=== PATIENT | female | born 1990 | race Asian ===

== ENCOUNTER 2020-12-04 19:38 | Inpatient (IN) | payer OTHER ==
[~2020-12-04] VITALS: Ht 154.9 cm; Wt 73.6 kg
[2020-12-04] MEDS ORDERED: CEFD1CAP8 PO (19:50)
[2020-12-04] MEDS ORDERED: OXYB5TAB10 PO (19:50)
[2020-12-04] MEDS ORDERED: birth control tab PO (19:50)
[2020-12-04] MEDS ORDERED: ceftin (19:50)
[2020-12-04] MEDS ORDERED: IBUP1TAB5 PO (19:50)
[2020-12-04] MEDS ORDERED: NS 1,000 ML IV ONE (20:55)
[2020-12-04 21:30] LABS: BASO % 0.4 % (0.0-1.0); EOS % 0.4 % (0.0-3.0); HEMATOCRIT 36.7 % (36.0-47.0); HEMOGLOBIN 12.2 g/dl (12.0-15.5); LYMPH # 1.9 10^3/uL (1.5-5.0); LYMPH % 20.2 % (24.0-44.0); MEAN CORPUSCULAR HEMOGLOBIN 28.4 pg (27.0-33.0); MEAN CORPUSCULAR HGB CONC 33.2 g/dl (32.0-36.5); MEAN CORPUSCULAR VOLUME 85.5 fl (80.0-96.0); MONO # 1.5 10^3/uL (0.0-0.8); NEUTROPHILS # 5.7 10^3/uL (1.5-8.5); NEUTROPHILS % 62.2 % (36.0-66.0); PLATELET COUNT, AUTOMATED 253 10^3/uL (150-450); RED BLOOD COUNT 4.29 10^6/uL (4.00-5.40); WHITE BLOOD COUNT 9.2 10^3/uL (4.0-10.0)
[2020-12-04 21:43] LABS: ALBUMIN 2.9 GM/DL (3.2-5.2); ALT/SGPT 100 U/L (12-78); BILIRUBIN,DIRECT 0.3 MG/DL (0.0-0.2); BILIRUBIN,TOTAL 0.4 MG/DL (0.2-1.0); BLOOD UREA NITROGEN 7 MG/DL (7-18); CALCIUM LEVEL 8.3 MG/DL (8.5-10.1); CARBON DIOXIDE LEVEL 23 MEQ/L (21-32); CHLORIDE LEVEL 108 MEQ/L (98-107); GLOMERULAR FILTRATION RATE > 60.0 (>60); GLUCOSE, FASTING 103 MG/DL (70-100); LIPASE 161 U/L (73-393); POTASSIUM SERUM 3.8 MEQ/L (3.5-5.1); SODIUM LEVEL 139 MEQ/L (136-145); TOTAL PROTEIN 7.2 GM/DL (6.4-8.2)
[2020-12-04 22:05] LABS: MONO % 16.5 % (2.0-8.0)
[2020-12-04] MEDS ORDERED: KETOROLAC 30 MG/ML 1ML VIAL IV ONE (22:55)
[2020-12-04] MEDS ORDERED: ISOVUE-370 76% 100ML VIAL As Ordered ONE (23:01)
[2020-12-05] VITALS (7 sets, daily range): BP systolic 112–133; BP diastolic 69–87
--- NOTE | 2020-12-05 00:53 | REPVR ---
PROCEDURE INFORMATION: Exam: CT Abdomen And Pelvis With Contrast Exam date and time: 12/04/2020 11:28 PM Age: 30 years old Clinical indication: Abdominal pain; Localized; Left upper quadrant (luq); Additional info: Upper abd pain TECHNIQUE: Imaging protocol: Computed tomography of the abdomen and pelvis with contrast. Radiation optimization: All CT scans at this facility use at least one of these dose optimization techniques: automated exposure control; mA and/or kV adjustment per patient size (includes targeted exams where dose is matched to clinical indication); or iterative reconstruction. Contrast material: ISOVUE 370; Contrast volume: 100 ml; Contrast route: INTRAVENOUS (IV); COMPARISON: No relevant prior studies available. FINDINGS: Liver: Unremarkable. No mass. Gallbladder and bile ducts: Normal. No calcified stones. No ductal dilation. Pancreas: Normal. No ductal dilation. Spleen: Normal. No splenomegaly. Adrenal glands: Normal. No mass. Kidneys and ureters: Layering calyceal stones in the upper pole of the left kidney. Patchy cortical hypoenhancement in the left kidney, most severely involving the upper pole. Mild left renal cortical atrophy. Left ureter is mildly distended with mild urothelial enhancement the. No obstructing ureteral calculi. Right kidney is unremarkable. Stomach and bowel: Unremarkable. No obstruction. No inflammatory changes or mucosal thickening. Appendix: No evidence of appendicitis. Intraperitoneal space: No free air. No significant fluid collection. Vasculature: Unremarkable. No abdominal aortic aneurysm. Lymph nodes: Unremarkable. No enlarged lymph nodes. Urinary bladder: Unremarkable as visualized. Reproductive: Unremarkable as visualized. Bones/joints: Unremarkable. No acute fracture. Soft tissues: Unremarkable. IMPRESSION: 1. Left pyelonephritis. 2. Nonobstructing calyceal stones in the left kidney. Electronically signed by: Andrew Reyes On 12/05/2020 00:52:40 AM
[2020-12-05] MEDS ORDERED: NS 1,000 ML IV SCH (01:35)
--- NOTE | 2020-12-05 01:35 | REPVR ---
PROCEDURE INFORMATION: Exam: US Abdomen, Limited; Right Upper Quadrant Exam date and time: 12/05/2020 1:27 AM Age: 30 years old Clinical indication: Abnormal findings; Abnormal lab test; Abnormal function test of other organs/systems; Additional info: Elevated lfts/fever TECHNIQUE: Imaging protocol: US abdomen. Real time ultrasound with image documentation. Limited exam focused on the right upper quadrant. COMPARISON: CT ABD/PEL W/IV CONTRAST ONLY 12/04/2020 11:27 PM FINDINGS: Liver: Normal. No masses. Gallbladder: Normal. No gallstones. There is no gallbladder wall thickening. Common bile duct: Normal. No stones. No dilation. Pancreas: Visualized pancreas is unremarkable. Right kidney: Normal. No mass. No hydronephrosis. IMPRESSION: No acute findings. Electronically signed by: Andrew Reyes On 12/05/2020 01:34:37 AM
[2020-12-05] MEDS ORDERED: D5W/0.45% SODIUM CHLORIDE 1,000 ML IV SCH (02:05)
[2020-12-05] MEDS ORDERED: BIRTH CONTOL (02:09)
[2020-12-05] MEDS ORDERED: NALOXONE INJ 0.4MG/1ML VIAL (J2310 PER 1MG) IV PRN (02:10)
[2020-12-05] MEDS: NS 1,000 ML IV SCH ×2 (03:05→04:51)
[2020-12-05] MEDS: cefTRIAXone SOD 1 GM in D5W MINI-BAG PLUS 50 ML IV SCH (03:05)
[2020-12-05] MEDS: MORPHINE 4 MG/ML 1ML VIAL/SYRINGE (J2270) IV PRN (03:12)
[2020-12-05 03:16] LABS: MONO SCRN NEGATIVE (NEGATIVE)
[2020-12-05 03:52] LABS: RSV AMPLIFICATION NEGATIVE (NEGATIVE)
[2020-12-05] MEDS: KETOROLAC 30 MG/ML 1ML VIAL IV SCH ×4 (05:00→23:00)
--- NOTE | 2020-12-05 06:34 | HPEPDOC ---
[facility] Medical History & Physical Date of Admission Dec 05, 2020 Date of Service: Dec 05, 2020 History and Physical CHIEF COMPLAINT: "It hurts to urinate." Fever 102 HISTORY OF PRESENT ILLNESS: 30-year-old female with history of urinary tract infection pyelonephritis and kidney stones previously treated in [place] and [place] childhood asthma was in her usual state of health until last Sunday when she developed dysuria chills and on and off subjective fevers pain worsened on the right flank on Sunday prompting her to come to the emergency room she denies any hematuria but admits to urinary frequency and urgency. She describes the pain as stabbing and achy persistent since Sunday prompting her to come to the emergency room, no radiation of the pain but better when she sits still and places a pillow on her stomach . the pain is worse when she moves around and ambulates. Despite taking ibuprofen to 200 mg tablets every 4-5 hours and Tylenol 500 mg every 6 hours at home, patient had intractable pain prompting her to come to the ER she had one episode of nausea without vomiting and complains of constipation. In the emergency room she was found to be septic with temperature 102 tachycardic with heart rate of 118 bpm but hemodynamically stable with systolic pressure ranging from 130 to 145 mmHg . She had normal lactic acid and white count CT abdomen and pelvis showed left pyelonephritis with left kidney nonobstructive calyceal stones. Urologist Dr. Bearden was consulted and recommended n.p.o. status after midnight for cystoscopy and left stent placement in the morning. 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 REVIEW OF SYSTEMS: 10 point review of systems negative aside from positive findings in HPI HOME MEDICATIONS: Please see below. PHYSICAL EXAMINATION: VITAL SIGNS: See below GENERAL APPEARANCE: Awake alert oriented to person place and time anicteric no distress no pallor cyanosis or icterus speaks in full sentences HEENT: Pupils equally round reactive to light accommodation extra ocular muscles are intact normocephalic atraumatic no JVD thyromegaly dry mucous membranes no cervical lymphadenopathy CARDIOVASCULAR: S1-S2 regular rate rhythm no murmurs rubs or gallops LUNGS: No kyphosis no scoliosis air entry is equal bilaterally inspiratory expiratory ratio 1:2 no adventitious breath sounds clear to auscultation bilaterally ABDOMEN: Positive bowel sounds soft left-sided CVA tenderness no rebound or guarding normal active bowel sounds no hepatosplenomegaly EXTREMITIES: No cyanosis clubbing or pitting edema LABORATORY DATA: See below. IMAGING: See below MICROBIOLOGY: Please see below. ASSESSMENT: 30-year-old female with history of urinary tract infection pyelonephritis and kidney stones previously treated in [facility] and [place] childhood asthma was in her usual state of health until last Sunday when she developed dysuria chills and on and off subjective fevers pain worsened on the right flank on Sunday prompting her to come to the emergency room she denies any hematuria but admits to urinary frequency and urgency. She describes the pain as stabbing and achy persistent since Sunday prompting her to come to the emergency room, no radiation of the pain but better when she sits still and places a pillow on her stomach . the pain is worse when she moves around and ambulates. Despite taking ibuprofen to 200 mg tablets every 4-5 hours and Tylenol 500 mg every 6 hours at home, patient had intractable pain prompting her to come to the ER she had one episode of nausea without vomiting and complains of constipation. In the emergency room she was found to be septic with temperature 102 tachycardic with heart rate of 118 bpm but hemodynamically stable with systolic pressure ranging from 130 to 145 mmHg . She had normal lactic acid and white count CT abdomen and pelvis showed left pyelonephritis with left kidney nonobstructive calyceal stones. Urologist Dr. Bearden was consulted and recommended n.p.o. status after midnight for cystoscopy and left stent placement in the morning. Sepsis secondary to acute pyelonephritis on the left kidney -IV fluids -IV ceftriaxone -Await urine and blood culture results and de-escalate antibiotics once sensitivity results are available acute pyelonephritis -IV ceftriaxone, IV fluids, de-escalate antibiotics once urine culture sensitivity results are available Left kidney nonobstructive calyceal stones -IV fluids while on IV Toradol - monitor renal function with a repeat creatinine -N.p.o. for cystoscopy and stent placement -Urologist Dr. Bearden consulted for cystoscopy and stent placement Diet n.p.o. D5 half-normal saline after normal saline IV boluses to prevent hypoglycemia. hypoglycemic protocol DVT prophylaxis compression stockings. cannot use heparin or Lovenox due to planned procedure for cystoscopy and stent placement Vital Signs Vital Signs Date Time Temp Pulse Resp B/P (MAP) Pulse Ox O2 Delivery O2 Flow Rate FiO2 12/05/20 04:00 17 12/05/20 03:22 99.0 82 138/82 (100) 99 Room Air Laboratory Data Labs 24H Laboratory Tests 2 12/04/20 21:11: Immature Granulocyte % (Auto) 0.3, Neutrophils (%) (Auto) 62.2, Lymphocytes (%) (Auto) 20.2L, Monocytes (%) (Auto) 16.5H, Eosinophils (%) (Auto) 0.4, Basophils (%) (Auto) 0.4, Neutrophils # (Auto) 5.7, Lymphocytes # (Auto) 1.9, Monocytes # (Auto) 1.5H, Eosinophils # (Auto) 0.0, Basophils # (Auto) 0.0, Nucleated Red Blood Cells % (auto) 0.0, Urine Color YELLOW, Urine Appearance CLEAR, Urine pH 7.0, Urine Specific [place] 1.011, Urine Protein 1+H, Urine Glucose (UA) NEGATI VE, Urine Ketones TRACEH, Urine Blood 1+H, Urine Nitrite NEGATIVE, Urine Bilirubin NEGATIVE, Urine Urobilinogen 4.0H, Urine Leukocyte Esterase NEGATIVE, Urine WBC (Auto) 8H, Urine RBC (Auto) 9H, Urine Hyaline Casts (Auto) 0, Urine Bacteria (Auto) NEGATIVE, Urine Squamous Epithelial Cells 0, Urine Sperm (Auto) , Anion Gap 8, Glomerular Filtration Rate > 60.0, Calcium Level 8.3L, Total Bilirubin 0.4, Direct Bilirubin 0.3H, Aspartate Amino Transf (AST/SGOT) 103H, Alanine Aminotransferase (ALT/SGPT) 100H, Alkaline Phosphatase 151H, Total Protein 7.2, Albumin 2.9L, Albumin/Globulin Ratio 0.7L, Lipase 161, Monoscreen NEGATIVE 12/04/20 21:23: POC Beta HCG, Quantitative < 5.0 12/04/20 21:31: Lactic Acid Level 1.1 12/05/20 03:08: Coronavirus (COVID-19)(PCR) NEGATIVE, Influenza Type A (RT-PCR) NEGATIVE, Influenza Type B (RT-PCR) NEGATIVE, Respiratory Syncytial Virus (PCR) NEGATIVE CBC/BMP Laboratory Tests 12/04/20 21:11 Microbiology Microbiology 12/04/20 Blood Culture, Received Pending 12/04/20 Blood Culture, Received Pending Home Medications Scheduled Cefdinir (Cefdinir) 300 Mg Capsule, 300 MG PO BID started 12/03/20 x 7 days Ibuprofen (Ibuprofen) 400 Mg Tablet, 400 MG PO TID for pain Scheduled PRN Oxybutynin Chloride (Oxybutynin Chloride) 5 Mg Tablet, 5 MG PO QHS PRN for prn Miscellaneous Medications [ contol tablets] unknown name Allergies Coded Allergies: No Known Allergies (Unverified , 12/04/20) A-FIB/CHADSVASC A-FIB History Current/History of A-Fib/PAF?: No Current PO Anticoag Therapy: No Age/Risk Factor Scoring CHADSVASC: CHADSVASC Response (Comments) Value Age Risk Factor Age < 65 years old 0 Gender Risk Factor Female 1 Hx of CHF No 0 Hx of HTN No 0 Hx of Stroke/TIA/or VTE No 0 Hx of Diabetes No 0 Hx of Vascular Disease No 0 Total 1 Treatment Treatment ordered: NONE MURALI LI MD Dec 05, 2020 06:05
[2020-12-05] MEDS ORDERED: GLUCAGON INJ 1MG VIAL SC PRN (06:35)
[2020-12-05] MEDS ORDERED: GLUCOSE 4GM CHEW TABLET PO PRN (06:35)
[2020-12-05] MEDS ORDERED: DEXTROSE 50% 50 ML SYRINGE IV PRN (06:35)
[2020-12-05 07:00] LABS: FERRITIN 232 NG/ML (8-252); IRON (FE) 26 UG/DL (50-170); PERCENT SATURATION 7.3 % (13.2-45.0); TOTAL IRON BINDING CAPACITY 355 UG/DL (250-450)
--- NOTE | 2020-12-05 07:18 | SMCUROLCON ---
Urology Consultation General Date of Consultation 12/05/20 Reason For Consultation This patient is seen for Left Pyelonephritis and Nephrolithiasis. 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 She has h/o childhood asthma was in her usual state of health until last Sunday when she developed dysuria chills and on and off subjective fevers pain worsened on the right flank on Sunday prompting her to come to the emergency room at an outside hospital where they took urine, prsecribed antibiotics and sent here home on antibiotics. No imaging was done. she denies any hematuria but admits to urinary frequency and urgency. She describes the pain as stabbing and achy persistent since Sunday prompting her to come to the emergency room, no radiation of the pain but better when she sits still and places a pillow on her stomach . the pain is worse when she moves around and ambulates. Despite taking ibuprofen to 200 mg tablets every 4-5 hours and Tylenol 500 mg every 6 hours at home, patient had intractable pain prompting her to come to the ER she had one episode of nausea without vomiting and complains of constipation. In the emergency room she was found to be septic with temperature 102 tachycardic with heart rate of 118 bpm but hemodynamically stable with systolic pressure ranging from 130 to 145 mmHg . She had normal lactic acid and white count CT abdomen and pelvis showed left pyelonephritis with left kidney nonobstructive calyceal stones. Abdominal sono noted a normal gall bladder. She was now admitted for new w/u and cystoscopy and stent insertion. 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 REVIEW OF SYSTEMS: 10 point review of systems negative aside from positive findings in HPI HOME MEDICATIONS: Please see below. PHYSICAL EXAMINATION: VITAL SIGNS: See below GENERAL APPEARANCE: Awake alert oriented to person place and time anicteric no distress no pallor cyanosis or icterus speaks in full sentences ABDOMEN: Positive bowel sounds soft + left-sided CVA tenderness no rebound or guarding normal active bowel sounds no hepatosplenomegaly EXTREMITIES: No cyanosis clubbing or pitting edema History of Present Illness The patient is a -year-old with a past medical history for . Medications Current Medications Current Medications Medications (Trade) Dose Ordered Sig/Mesha Route PRN Reason Start Time Stop Time Status Last Admin Dose Admin Acetaminophen (Tylenol Tab) 650 mg Q4HP PRN PO MILD PAIN or TEMP > 101 12/05/20 02:05 Ceftriaxone Sodium 1 gm/ Dextrose 50 ml @ 100 mls/hr Q24H IV 12/05/20 03:00 12/05/20 03:05 Dextrose (Dextrose 50%) 25 ml ASDIRECTED PRN IV SEE LABEL COMMENTS 12/05/20 06:35 Dextrose/Sodium Chloride 1,000 ml @ 100 mls/hr Q10H IV 12/05/20 02:05 12/05/20 05:57 Glucagon (Glucagon) 1 mg ASDIRECTED PRN SC SEE LABEL COMMENTS 12/05/20 06:35 Glucose (Glucose) 16 GM ASDIRECTED PRN PO SEE LABEL COMMENTS 12/05/20 06:35 Home Med (Med Rec Complete!) ASDIRECTED XX 12/05/20 02:10 12/05/20 02:34 DC Ketorolac Tromethamine (ToRADol) 30 mg Q6H IV 12/05/20 05:00 12/10/20 04:59 Morphine Sulfate (Morphine Sulfate Inj) 4 mg Q2HP PRN IV SEVERE PAIN (PS 8-10) 12/05/20 02:05 12/05/20 03:12 Naloxone HCl (Narcan) 0.1 mg Q5MP PRN IV RESP. RATE < 10 12/05/20 02:10 Sodium Chloride 1,000 ml @ 100 mls/hr Q10H IV 12/05/20 01:35 12/05/20 02:09 DC Sodium Chloride 1,000 ml @ 999 mls/hr Q1H IV 12/05/20 02:05 12/05/20 04:04 DC 12/05/20 04:51 Allergies Allergies: Coded Allergies: No Known Allergies (Unverified , 12/04/20) Vital Signs/I&O Vital Signs Date Time Temp Pulse Resp B/P (MAP) Pulse Ox O2 Delivery O2 Flow Rate FiO2 12/05/20 04:00 17 12/05/20 03:22 99.0 82 138/82 (100) 99 Room Air I&O- Last 24 Hours up to 6 AM 12/05/20 06:00 Intake Total 1000 ml Balance 1000 ml Laboratory Data 24H Labs Laboratory Tests 2 12/04/20 21:11: Immature Granulocyte % (Auto) 0.3, Neutrophils (%) (Auto) 62.2, Lymphocytes (%) (Auto) 20.2L, Monocytes (%) (Auto) 16.5H, Eosinophils (%) (Auto) 0.4, Basophils (%) (Auto) 0.4, Neutrophils # (Auto) 5.7, Lymphocytes # (Auto) 1.9, Monocytes # (Auto) 1.5H, Eosinophils # (Auto) 0.0, Basophils # (Auto) 0.0, Nucleated Red Blood Cells % (auto) 0.0, Urine Color YELLOW, Urine Appearance CLEAR, Urine pH 7.0, Urine Specific [place] 1.011, Urine Protein 1+H, Urine Glucose (UA) NEGATIVE, Urine Ketones TRACEH, Urine Blood 1+H, Urine Nitrite NEGATIVE, Urine Bilirubin NEGATIVE, Urine Urobilinogen 4.0H, Urine Leukocyte Esterase NEGATIVE, Urine WBC (Auto) 8H, Urine RBC (Auto) 9H, Urine Hyaline Casts (Auto) 0, Urine Ba cteria (Auto) NEGATIVE, Urine Squamous Epithelial Cells 0, Urine Sperm (Auto) , Anion Gap 8, Glomerular Filtration Rate > 60.0, Calcium Level 8.3L, Iron Level 26L, Total Iron Binding Capacity 355, Transferrin % Saturation 7.3L, Ferritin 232, Total Bilirubin 0.4, Direct Bilirubin 0.3H, Aspartate Amino Transf (AST/SGOT) 103H, Alanine Aminotransferase (ALT/SGPT) 100H, Alkaline Phosphatase 151H, Total Protein 7.2, Albumin 2.9L, Albumin/Globulin Ratio 0.7L, Lipase 161, Monoscreen NEGATIVE 12/04/20 21:23: POC Beta HCG, Quantitative < 5.0 12/04/20 21:31: Lactic Acid Level 1.1 12/05/20 03:08: Coronavirus (COVID-19)(PCR) NEGATIVE, Influenza Type A (RT-PCR) NEGATIVE, Influenza Type B (RT-PCR) NEGATIVE, Respiratory Syncytial Virus (PCR) NEGATIVE CBC/BMP Laboratory Tests 12/04/20 21:11 Microbiology Microbiology 12/04/20 Blood Culture, Received Pending 12/04/20 Blood Culture, Received Pending MUNIRA VELAZQUEZ M.D. Dec 05, 2020 07:18
[2020-12-05 07:22] LABS: BASO % 0.5 % (0.0-1.0); EOS # 0.1 10^3/uL (0.0-0.5); EOS % 0.6 % (0.0-3.0); HEMATOCRIT 35.2 % (36.0-47.0); HEMOGLOBIN 11.4 g/dl (12.0-15.5); LYMPH # 3.3 10^3/uL (1.5-5.0); LYMPH % 42.2 % (24.0-44.0); MEAN CORPUSCULAR HEMOGLOBIN 28.4 pg (27.0-33.0); MEAN CORPUSCULAR HGB CONC 32.4 g/dl (32.0-36.5); MEAN CORPUSCULAR VOLUME 87.8 fl (80.0-96.0); MONO # 1.2 10^3/uL (0.0-0.8); MONO % 14.6 % (2.0-8.0); NEUTROPHILS # 3.3 10^3/uL (1.5-8.5); NEUTROPHILS % 41.7 % (36.0-66.0); PLATELET COUNT, AUTOMATED 231 10^3/uL (150-450); RED BLOOD COUNT 4.01 10^6/uL (4.00-5.40); WHITE BLOOD COUNT 7.9 10^3/uL (4.0-10.0)
[2020-12-05 07:33] LABS: INR 0.91; PROTHROMBIN TIME 12.4 SECONDS (12.5-14.3)
[2020-12-05 07:34] LABS: PARTIAL THROMBOPLASTIN TIME 29.6 SECONDS (24.2-38.5)
[2020-12-05 07:38] LABS: HEMOGLOBIN A1c 5.7 %
[2020-12-05 07:54] LABS: ERYTHROCYTE SEDIMENTATION RATE 56 mm/hr (0-20)
[2020-12-05 07:58] LABS: ALBUMIN 2.5 GM/DL (3.2-5.2); ALT/SGPT 84 U/L (12-78); AMYLASE 39 U/L (25-115); BILIRUBIN,TOTAL 0.2 MG/DL (0.2-1.0); BLOOD UREA NITROGEN 5 MG/DL (7-18); C REACTIVE PROTEIN QUANTITATIV 6.93 MG/DL (0.00-0.30); CALCIUM LEVEL 7.2 MG/DL (8.5-10.1); CARBON DIOXIDE LEVEL 24 MEQ/L (21-32); CHLORIDE LEVEL 111 MEQ/L (98-107); CHOLESTEROL LEVEL 142 MG/DL (<200); CREATININE FOR GFR 0.42 MG/DL (0.55-1.30); GLOMERULAR FILTRATION RATE > 60.0 (>60); GLUCOSE, FASTING 102 MG/DL (70-100); HDL CHOLESTEROL 52 MG/DL (>40); LDL CHOLESTEROL 77 MG/DL (<100); LIPASE 74 U/L (73-393); NON-HDL-C 90 MG/DL; POTASSIUM SERUM 3.7 MEQ/L (3.5-5.1); SODIUM LEVEL 141 MEQ/L (136-145); TRIGLYCERIDES LEVEL 63 MG/DL (<150)
[2020-12-05] MEDS ORDERED: LIDOCAINE 2% 5ML JELLY UROJET As Ordered ONE (11:56)
[2020-12-05] MEDS ORDERED: CONRAY-60 60% 50ML VIAL (Q9961) As Ordered ONE (11:56)
[2020-12-05] MEDS ORDERED: MIDAZOLAM INJ 2MG/2ML VIAL (J2250 PER 1MG) As Ordered ONE (12:38)
[2020-12-05] MEDS ORDERED: dexameTHASONE 4 MG/ML 1ML VIAL (J1100 PER 1MG) As Ordered ONE (12:38)
[2020-12-05] MEDS ORDERED: propofoL 200 MG/20 ML VIAL As Ordered ONE (12:38)
[2020-12-05] MEDS ORDERED: ONDANSETRON 4MG/2ML VIAL As Ordered ONE (12:38)
[2020-12-05] MEDS ORDERED: fentaNYL 100 MCG/2 ML INJECTION (J3010) As Ordered ONE (12:38)
[2020-12-05] MEDS ORDERED: LIDOCAINE 2% 100MG/5ML SDV (FOR ANES.) As Ordered ONE (12:38)
--- NOTE | 2020-12-05 12:58 | REP ---
INDICATION: STENT PLACEMENT LEFT SIDE. COMPARISON: Comparison CT study December 04, 2020.. TECHNIQUE: Four views. 13 seconds of fluoroscopy time is reported. FINDINGS: A sequence of 4 last image hold fluoroscopically obtained spot radiographs of the left abdomen document left ureteral cannulation, contrast injection and double-pigtail stent placement. 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 IMPRESSION: Procedural imaging. <Electronically signed by Shekhar Fields > 12/05/20 [id number]
[2020-12-05] MEDS ORDERED: METOCLOPRAMIDE INJ 10MG/2ML VIAL (J2765 PER 1) IV PRN (13:10)
[2020-12-05] MEDS ORDERED: ONDANSETRON 4MG/2ML VIAL IV PRN (13:10)
[2020-12-05] MEDS ORDERED: LR 1,000 ML IV SCH (13:10)
[2020-12-05] MEDS ORDERED: PERCOCET 5MG/325MG TAB PO PRN (13:10)
[2020-12-05] MEDS ORDERED: fentaNYL 100 MCG/2 ML INJECTION (J3010) IV PRN (13:10)
--- NOTE | 2020-12-05 13:11 | ROOPDOC ---
[facility] Report Of Operation Report of Operation DATE OF PROCEDURE: 12/05/20 PREPROCEDURE DIAGNOSES: LEFT NEPHROLITHIASIS AND PYELONEPHRITIS POSTPROCEDURE DIAGNOSES: same PROCEDURE PERFORMED: 1. Cystoscopy 2. Left retrograde pyelogram 3. Left ureteroscopy 3. Insertion of two left ureteral stents SURGEON: MUNIRA VELAZQUEZ MD LEGAL INVESTIGATOR: NONE ANESTHESIA: MAC, DR. AYLA ULRICH ESTIMATED BLOOD LOSS: Approximately 2 mL. COMPLICATIONS: NONE REMARKS: MILD HYDRONEPHROSIS LEFT UPPER POLE FINDINGS: Duplicated left ureters SPECIMENS REMOVED: NONE PROCEDURE NOTE: 30 YO WOMAN H/O LEFT NEPHROLITHIASIS WITHOUT INVASIVE TREATMENT OR ESWL AND NOW WITH LEFT PYELONEPHRITIS. DESCRIPTION OF PROCEDURE: PATIENT WAS TAKEN TO THE OR AND TIME OUT AND CONSENT VERIFIED. HE RECEIVED IV CEFTRIAXONE. SHE UNDERWENT MAC ANESTHESIA, WAS PLACED IN THE DORSOLITHOTOMY POSITION AND PREPPED AND DRAPED IN THE USUAL STERILE FASHION. A 21 FR CYSTOSCOPE WAS INTRODUCED INTO THE URETHRA AND BLADDER, WHICH WAS REMARKABLE FOR ERYTHEMA AND CYSTITIS. RETROGRADE PYELOGRAPHY WAS PERFORMED ON THE PROXIMAL LEFT URETERAL ORIFICE ON THE PROXIMAL TRIGONE AND 0.38 GUIDEWIRE PLACED INTO THE LOWER POLE KIDNEY. A 6 FR MULTILENGTH URETERAL STENT WAS INSERTED INTO THE KIDNEY AND DISTAL COIL IN THE BLADDER. A SECOND PATULOUS URETERAL ORIFICE WAS IDENTIFIED DISTALLY AND CYSTOSCOPE USED TO PERFORM DISTAL URETEROSCOPY AND RETROGRADE PYELOGRAPHY UP TO THE UPPER POLE MOIETY. A 6 FR MULTILENGTH URETERAL STENT WAS INSERTED INTO THE KIDNEY AND DISTAL COIL IN THE BLADDER. THE BLADDER WAS DRAINED AND CYSTOSCOPE REMOVED. PATIENT WAS AWAKENED AND TRANSFERRED TO THE PACU. SHE TOLERATED THE PROCEDURE WELL WITHOUT COMPLICATIONS. SHE WILL REMAIN ON IV ANTIBIOTICS UNTIL BLOOD AND Ucx CAN IDENTIFY THE ORGANISMS AND SENSITIVITIES. UPON DISCHARGED HOME, SHE WILL F/U IN THE [facility] TO SCHEDULE URETEROSCOPY AND STONE TREATMENT WELL POSSIBLE URETERAL REIMPLANT. MUNIRA VELAZQUEZ M.D. Dec 05, 2020 09:40
[2020-12-05] MEDS: LR 1,000 ML IV SCH ×2 (13:15→18:20)
[2020-12-05] MEDS: PHENAZOPYRIDINE 100 MG TAB PO PRN (16:10)
[2020-12-05] MEDS: oxyBUTYnin 5 MG TAB PO PRN ×2 (16:10→21:31)
[2020-12-05] MEDS: SENOKOT S TAB PO SCH (16:10)
[2020-12-05] MEDS: ACETAMINOPHEN TAB 650MG DOSE (2X325MG) PO PRN (18:20)
[2020-12-06] MEDS: MORPHINE 4 MG/ML 1ML VIAL/SYRINGE (J2270) IV PRN ×2 (00:03→02:58)
[2020-12-06 02:00] VITALS: BP 123/75
[2020-12-06] MEDS: cefTRIAXone SOD 1 GM in D5W MINI-BAG PLUS 50 ML IV SCH (02:57)
[2020-12-06] MEDS: PHENAZOPYRIDINE 100 MG TAB PO PRN (03:47)
[2020-12-06] MEDS: KETOROLAC 30 MG/ML 1ML VIAL IV SCH (05:00)
[2020-12-06 06:00] VITALS: BP 120/77
[2020-12-06 06:10] LABS: BASO % 0.1 % (0.0-1.0); EOS % 0.1 % (0.0-3.0); HEMATOCRIT 36.5 % (36.0-47.0); HEMOGLOBIN 11.9 g/dl (12.0-15.5); LYMPH # 2.1 10^3/uL (1.5-5.0); LYMPH % 27.2 % (24.0-44.0); MEAN CORPUSCULAR HEMOGLOBIN 28.1 pg (27.0-33.0); MEAN CORPUSCULAR HGB CONC 32.6 g/dl (32.0-36.5); MEAN CORPUSCULAR VOLUME 86.1 fl (80.0-96.0); MONO # 0.7 10^3/uL (0.0-0.8); MONO % 8.9 % (2.0-8.0); NEUTROPHILS # 4.9 10^3/uL (1.5-8.5); NEUTROPHILS % 63.2 % (36.0-66.0); PLATELET COUNT, AUTOMATED 281 10^3/uL (150-450); RED BLOOD COUNT 4.24 10^6/uL (4.00-5.40); WHITE BLOOD COUNT 7.8 10^3/uL (4.0-10.0)
[2020-12-06] MEDS ORDERED: PERCOCET 5MG/325MG TAB PO ONE (06:30)
[2020-12-06 06:37] LABS: ALBUMIN 2.7 GM/DL (3.2-5.2); ALT/SGPT 93 U/L (12-78); BILIRUBIN,TOTAL 0.2 MG/DL (0.2-1.0); BLOOD UREA NITROGEN 6 MG/DL (7-18); CARBON DIOXIDE LEVEL 29 MEQ/L (21-32); CHLORIDE LEVEL 105 MEQ/L (98-107); CREATININE FOR GFR 0.53 MG/DL (0.55-1.30); GLOMERULAR FILTRATION RATE > 60.0 (>60); GLUCOSE, FASTING 124 MG/DL (70-100); POTASSIUM SERUM 4.7 MEQ/L (3.5-5.1); SODIUM LEVEL 140 MEQ/L (136-145); TOTAL PROTEIN 7.1 GM/DL (6.4-8.2)
[2020-12-06] MEDS: LR 1,000 ML IV SCH (09:15)
[2020-12-06] MEDS: SENOKOT S TAB PO SCH (09:58)
[2020-12-06 10:00] VITALS: BP 134/76
[2020-12-06] MEDS ORDERED: PERCOCET 5MG/325MG TAB PO PRN (10:00)
[2020-12-06] MEDS: ACETAMINOPHEN TAB 650MG DOSE (2X325MG) PO PRN (10:02)
[2020-12-06] MEDS ORDERED: IBUP-1114 PO (10:34)
[2020-12-06] MEDS ORDERED: PHEN1TAB73 PO (10:34)
[2020-12-06 10:48] LABS: HEPATITIS B SURFACE ANTIGEN NEGATIVE (NEGATIVE)
[2020-12-06 11:15] LABS: HEPATITIS B CORE ANTIBODY IGM NEGATIVE (NEGATIVE); HEPATITIS C VIRUS ABY INDEX 0.1 INDEX (<0.8)
[2020-12-06 11:17] LABS: HEPATITIS A ANTIBODY IGM NEGATIVE (NEGATIVE)
[2020-12-07 11:08] LABS: ANTINUCLEAR ANTIBODIES DIRECT Negative (Negative); CERULOPLASMIN 46.9 mg/dL (19.0-39.0)
--- NOTE | 2020-12-07 12:34 | DSES ---
DISCHARGE SUMMARY DATE OF ADMISSION: 12/05/2020 DATE OF DISCHARGE: 12/06/2020 DISCHARGE DIAGNOSES: 1. Sepsis secondary to acute left kidney pyelonephritis. 2. Left kidney nonobstructive caliceal stone. 3. Mild hydronephrosis, left upper pole. 4. Duplicated left ureters. 5. Status post cystoscopy with left retrograde pyelogram, left urethroscopy, and insertion of two ureteral stents. CONSULTANTS ON THE CASE: Dr. Bearden of urology. PROCEDURES PERFORMED DURING THE HOSPITALIZATION: Cystoscopy with placement of two left ureteral stents. CONDITION: Stable. DISPOSITION: Patient discharged home. DISCHARGE INSTRUCTIONS: Patient instructed to take initial course of cefdinir 300 mg twice a day for the next 6 days. She is also to take ibuprofen 800 mg three times a day as needed for pain. She is advised to abstain from work over the next 72 hours and has been given a note to excuse her absence. She is to followup in the urology clinic in approximately a week. RELEVANT LABORATORIES: Blood cultures times two showed no growth. Urine cultures were not obtained during this hospital stay. Urinalysis did not show any significant evidence of infection. Her white blood cell count was 7.8, hemoglobin 11.9, hematocrit 36.5, platelet count 281,000. Sodium 140, potassium 4.7, chloride 105, bicarbonate is 29, anion gap is 6, BUN is 6, creatinine 0.53, glucose is 124, calcium is 9. AST 43, ALT 93, alkaline phosphatase 141. Procalcitonin 0.57. TSH is 5.2. Total cholesterol is 142, LDL is 77, non-HDL is 90, total HDL is 52, amylase is 39, lipase is 74. Ceruloplasmin is pending. CRP was 6.93. COVID swab was negative. Hepatitis panel was negative. Coagulations were normal. INR 0.91. PT of 12.4. IMAGING STUDIES OBTAINED DURING HOSPITAL STAY: CT of the abdomen and pelvis with contrast. This showed left pyelonephritis, nonobstructing caliceal stone in the left kidney. Right upper quadrant ultrasound. This showed no acute findings. Retrograde pyelogram. Please see report for details. 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 She was evaluated in the emergency room and found to have an acute pyelonephritis. She was placed on intravenous (IV) antibiotics and admitted to the hospitalist service. Urology was consulted. She was kept nothing by mouth. She was taken to the operative suite, where she underwent a cystoscopy with retrograde pyelogram. Two stents were placed, and she was found to have mild left hydronephrosis. The patient was found to have two ureters. She was maintained on IV Rocephin. Urinalysis on admission did not show any significant pathology. The patient was transitioned to oral antibiotics. Blood cultures remained negative. She was doing quite well. Her pain was controlled with oral medications, and she was discharged home in stable condition. At the time of discharge, patient's temperature is 97.8, pulse 88, respirations 17, blood pressure 134/76, oxygen saturation 97% on room air. General: The patient is alert and oriented times three. She appears in no acute distress. Her skin is intact and warm to touch. Head is atraumatic. Pupils symmetric and reactive to light. Oropharynx is clear. Neck supple. Lung sounds present without rales or rhonchi. Heart is S1, S2. No murmurs, rubs, or gallops. Abdomen is soft, nontender, nondistended. Extremities without any cyanosis, clubbing, or edema. Genitourinary (): The patient has palpable left costovertebral angle (CVA) tenderness. No suprapubic tenderness whatsoever. A total of 30 minutes spent completing all discharge paperwork.
== END 2020-12-06 11:33 | disposition home or self-care (01) | DRG 854 ==
LOC: M ED 19:38 → M ED INP 12-05 02:04 → M MSPAV 12-05 04:17
PROVIDERS: ADMIT General Practice; ATTEND Internal Medicine
PROC: 0T778DZ Dilation of Left Ureter with Intraluminal Device, Via Natural or Artificial Opening Endoscopic (ICD-10-PCS; principal; 2020-12-05 06:44)
DX: A41.9 Sepsis, unspecified organism (principal); N13.6 Pyonephrosis; F17.290 Nicotine dependence, other tobacco product, uncomplicated; Z20.822 Contact with and (suspected) exposure to COVID-19; Z79.3 Long term (current) use of hormonal contraceptives; Q62.5 Duplication of ureter

== ENCOUNTER → 2020-12-27 | Outpatient (CLI) | payer OTHER ==
[~2020-12-27] MED LIST: BIRTH CONTOL; CEFD1CAP8 PO; IBUP-1114 PO; IBUP1TAB5 PO; OXYB5TAB10 PO; PHEN1TAB73 PO; birth control tab PO; ceftin
--- NOTE | 2020-12-27 21:28 | REP ---
INDICATION: TUBULO-INTERSTITIAL NEPHRITIS, NOT SPCF ACUTE CT 1ST COMPARISON: None. TECHNIQUE: Supine view of the abdomen and pelvis. FINDINGS: Two left-sided ureteral stents suggest duplicated collecting system and small calcifications suggest upper pole nephroliths measuring up to 4 mm. Bowel gas pattern is nonspecific. No organomegaly. Skeletal structures are intact. Phleboliths noted in the right hemipelvis. IMPRESSION: Findings described above consistent with left-sided duplicated collecting system and nonobstructing upper pole nephroliths. <Electronically signed by Juan Galeas > 12/27/20 [id number]
--- NOTE | 2020-12-27 22:39 | REP ---
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 This CT examination was performed using the following dose reduction techniques: Automated exposure control, adjustment of mA and/or kv according to the patient's size, and use of iterative reconstruction technique. FINDINGS: Two left-sided ureteral stents suggesting duplicated collecting system with atrophic appearance to the upper pole moiety and upper pole nonobstructing nephroliths measuring up to 4.5 mm identified and similar to prior examination. Few left perinephric and periureteral retroperitoneal lymph nodes are again identified and similar to prior examination. No left-sided hydroureteronephrosis. Right kidney is grossly normal by noncontrast evaluation. Liver, spleen, pancreas, collapsed gallbladder, and bilateral adrenal glands are normal by noncontrast evaluation. The enteric system is without obstruction or acute inflammatory process. Normal terminal ileum and appendix are identified in the right lower quadrant. Pelvis demonstrates relatively normal bladder and age-appropriate uterus/adnexa. No ascites. No free air. Musculoskeletal structures are intact and relatively normal. Lung bases are clear. IMPRESSION: 1. Changes related to the left kidney as described above including nonobstructing nephroliths in the upper pole moiety as well as presumed reactive lymph nodes in the retroperitoneum along the path of the left ureter. <Electronically signed by Juan Galeas > 12/27/20 [id number]
== END ==
LOC: M RAD 14:06
PROVIDERS: ATTEND Specialist
DX: N12 Tubulo-interstitial nephritis, not specified as acute or chronic (principal)

== ENCOUNTER → 2021-01-24 | Outpatient (CLI) | payer OTHER ==
[~2021-01-24] MED LIST changes: +CYSTO-CONRAY II 17.2% 250ML VIAL (Q9958) As Ordered ONE
--- NOTE | 2021-01-24 15:14 | REP ---
INDICATION: TUBULO-INTERSTITIAL NEPHRITIS, NOT SPCF ACUTE O. COMPARISON: None TECHNIQUE: This procedure was performed by Lanny Moeller [facility], under the direct supervision of Dr. Hall. Images were reviewed with Dr. Hall prior to dictation. The bladder was catheterized using aseptic precautions, and standard technique. Approximately 175 ml of Cysto-Conray II was instilled into the bladder in a retrograde flow. Multiple fluoroscopic radiographs were obtained. FINDINGS: The bladder is normal in position and contour. Prior to the bladder becoming even partially distended reflux was visualized extending the length of the ureter and into the left renal collecting system. During voiding even more prominent reflux was visualized extending the length of the ureter and into the left collecting system. The patient does have a documented duplicated collecting system with only 1 of the ureter demonstrating reflux during the study. There is essentially no postvoid residual. IMPRESSION: Grade 3-4 vesicoureteral reflux as described above. 0.1 minutes of fluoroscopy time was utilized for this procedure. Some fluoroscopic images are performed with last image hold technology. These images require no additional radiation. <Electronically signed by Lanny Moeller > 01/24/21 1501 <Electronically signed by Dequan Hall > 01/24/21 1510
== END ==
LOC: M RADPRO 09:16
PROVIDERS: ATTEND Urology
DX: N12 Tubulo-interstitial nephritis, not specified as acute or chronic (principal)
CPT/HCPCS: 51610; 74455; Q9958

== ENCOUNTER 2021-02-15 11:54 | Emergency (ER) | payer OTHER ==
[~2021-02-15] VITALS: Ht 154.9 cm; Wt 72.3 kg
[~2021-02-15 11:54] MED LIST changes: -CYSTO-CONRAY II 17.2% 250ML VIAL (Q9958) As Ordered ONE
[2021-02-15] MEDS ORDERED: MYRB25TA (12:52)
--- NOTE | 2021-02-15 14:09 | REP ---
INDICATION: crush injury COMPARISON: None. TECHNIQUE: AP, lateral, bilateral oblique views left foot. FINDINGS: There is a comminuted nondisplaced fracture involving the 1st toe distal phalanx consistent with crush injury. There appears to be a subtle nondisplaced fracture at the distal tip of the 3rd toe distal phalanx. Remainder of the examination appears normal. IMPRESSION: Fractures involving the 1st and 3rd distal phalanges. <Electronically signed by Juan Galeas > 02/15/21 7146
[2021-02-15] MEDS ORDERED: NORCO, ANEXSIA 5/325MG TABLET (HYDROcodone/ACETAMINOPHEN) PO ONE (15:15)
[2021-02-15 15:31] VITALS: BP 127/62
== END 2021-02-15 15:45 | disposition home or self-care (01) ==
LOC: M ED 11:54
DX: S92.425A Nondisplaced fracture of distal phalanx of left great toe, initial encounter for closed fracture (principal); S92.535A Nondisplaced fracture of distal phalanx of left lesser toe(s), initial encounter for closed fracture; X58.XXXA Exposure to other specified factors, initial encounter; Y92.9 Unspecified place or not applicable; Y93.9 Activity, unspecified; Y99.9 Unspecified external cause status

== ENCOUNTER → 2021-04-14 | Outpatient (CLI) | payer OTHER ==
[~2021-04-14] MED LIST changes: +CODCAP PO; +MYRB25TA PO; +SM M250T PO
[2021-04-14 14:19] LABS: HEMATOCRIT 39.8 % (36.0-47.0); HEMOGLOBIN 12.6 g/dl (12.0-15.5); MEAN CORPUSCULAR HEMOGLOBIN 27.2 pg (27.0-33.0); MEAN CORPUSCULAR HGB CONC 31.7 g/dl (32.0-36.5); PLATELET COUNT, AUTOMATED 336 10^3/uL (150-450); RED BLOOD COUNT 4.63 10^6/uL (4.00-5.40); WHITE BLOOD COUNT 6.2 10^3/uL (4.0-10.0)
[2021-04-14 14:30] LABS: BLOOD UREA NITROGEN 8 MG/DL (7-18); CALCIUM LEVEL 9.3 MG/DL (8.5-10.1); CARBON DIOXIDE LEVEL 31 MEQ/L (21-32); CHLORIDE LEVEL 104 MEQ/L (98-107); CREATININE FOR GFR 0.69 MG/DL (0.55-1.30); GLOMERULAR FILTRATION RATE > 60.0 (>60); GLUCOSE, FASTING 153 MG/DL (70-100); POTASSIUM SERUM 4.1 MEQ/L (3.5-5.1); SODIUM LEVEL 139 MEQ/L (136-145)
== END ==
LOC: M LAB 13:26
PROVIDERS: ATTEND Urology
DX: Z01.818 Encounter for other preprocedural examination (principal); N13.70 Vesicoureteral-reflux, unspecified

== ENCOUNTER 2021-04-18 09:33 | Day surgery (SDC) | payer OTHER ==
[~2021-04-18] VITALS: Ht 156.2 cm; Wt 72.1 kg
[~2021-04-18 09:33] MED LIST changes: +LR 1,000 ML IV ONE; +ceFAZolin SOD 2 GM in IV 1 EA IV ONE
--- OUTSIDE RECORDS SUMMARY | 2021-04-18 09:38 | CCD ---
Author Author [facility] Organization [facility] Address Unknown Phone Unavailable Care Team Providers Care Bearing Inspector Name Role Phone Abiodun Ke Unavailable PROBLEMS Type Condition ICD9-CM Code [id number] Code Onset Dates Condition S tatus W/U Status Risk SNOMED Code Notes Problem Kidney stone N20.0 Active confirmed 4753305 7 Problem VUR (vesicoureteric reflux) N13.70 Active confirmed 774504900 Problem OAB (overactive bladder) N32.81 Active confirmed 957844276 Problem Kidney stones N20.0 Active confirmed 228439 07 Problem Retained ureteral stent Z96.0 Active confirmed 768921078 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 3 5413050 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 726363916 ALLERGIES No Known Allergies ENCOUNTERS from 1991 to 2021-02-10 Encounter Location Date Provider Diagnosis [facility] U[facility] [address] [phone] [place] [address] Jan, Ke Rascon OAB (overactive bladder) N32.81 ; VUR (v esicoureteric reflux) N13.70 ; History of UTI Z87.440 and 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 Alcohol Screening: Question Answer Notes Did you have a drink containing alcohol in the past year? Ye s Points 2 Interpretation Negative How many drinks did you have on a typica l day when you were drinking in the past year? 3 or 4 (1 point) How often did you have a drink containing alcohol in t he past year? Monthly or less (1 point) Tobacco Use: Question Answer Notes Are you a: Uses tobacco in other forms vapes REASON FOR REFERRAL No Information VITAL SIGNS Weight 164 lbs Jan, Weight-kg 74.39 kg Jan, Height 61 in Jan, BMI 30.98 kg/m2 Jan, Heart Rate 92 /min Jan, Respiratory Rate 18 /min Jan, Temperature 97.4 degrees Fahrenheit Jan, Oximetry 95% Jan, Blood pressure systolic 130 mm Hg Jan, Blood pressure diastolic 74 mm Hg Jan, MEDICATIONS Medication SIG (Take, Route, Frequency, Duration) Notes Start Da te End Date Status Myrbetriq 50 MG 1 tablet Orally Once a day for 30 day(s) 2 2 Jan, 2021 Active Myrbetriq 25 MG 1 tablet Orally Once a day for 30 day(s) 2 3 Jan, 2021 Active Cranberry 250 MG as directed Orally Active Magnesium 500 MG 2 tablet with a meal Orally Once a day Active Pyridium 100 MG 2 tablets after meals Orally Three times a day f or 30 day(s) Dec, Not-Taking Oxybutynin Chloride ER 10 MG 1 tablet Orally Once a day for 30 day(s) Not-Taking Cod Liver Oil - as directed Orally A ctive May Have - control Active Oxybutynin Chloride ER 5 MG 1 tablet Orally Once a day for 30 da y(s) Dec, Not-Taking PROCEDURES No Information RESULTS No Results REASON FOR VISIT f/u [facility] results MEDICAL (GENERAL) HISTORY Type Description Date Medical History kidney stones Medical History duplex kidney Medical History completely duplicated left urinary syste m Medical History Vesicoureteral reflux on the left involving the upper moiety of the duplication Medical History UTIs including pyelonephritis Medical History 4 mm stone upper pole moiety on the left Medical History Atrophy of upper pole moiety on the left Surgical History cysto with stent placement 12/2020 Surgical History leap Surgical History right little toe reconstruction Surgical History cysto with stent removal 01/04/2021 Hospitalization History stent placement 12/2020 Goals Section No Information Health Concerns No Information MEDICAL EQUIPMENT No Information MENTAL STATUS No Information FUNCTIONAL STATUS No Information ASSESSMENTS Encounter Date Diagnosis Assessment Notes Treatment Notes Treatm ent Clinical Notes Jan, OAB (overactive bladder) (ICD-10 - N32.81) Jan, VUR (vesicoureteric reflux) (ICD-10 - N13.70) Jan, History of UTI (ICD-10 - Z87.440) Jan, Duplicated left renal collecting system (ICD-10 - Q62.5) PLAN OF TREATMENT Medication Medication Name Sig Start Date Stop Date Myrbetriq 25 MG 1 tablet Orally Once a day for 30 day(s) Jan, Myrbetriq 50 MG 1 tablet Orally Once a day for 30 day(s) Jan, Next Appt Details 4 Weeks Reason:Vesicoureteral reflux and overactive bladder Provider Name:Ke Rascon, 2021-02-2 2 01:45:00 PM, [id number], , [place], [address], Follow Up:4 WeeksVesicoureteral reflux and overactive bladder Insurance Providers Payer Name Payer Address Payer Phone Insured Name Patient Relati onship to Insured Coverage Start Date Coverage End Date [facility] [employer] [address] [place] [address] MURALI GALEAS self
--- OUTSIDE RECORDS SUMMARY | 2021-04-18 09:38 | CCD ---
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 3 0930848 ALLERGIES No Known Allergies ENCOUNTERS from 1991 to 2021-01-20 Encounter Location Date Provider Diagnosis [facility] [facility] Urology [address] [phone] [place] [address] Dec, Ke Rascon Retained ureteral stent Z96.0 ; Kidney d uplication Q63.0 ; Kidney stones N20.0 and Pyelonephritis N12 IMMUNIZATIONS No Information SOCIAL HISTORY Tobacco Use: Social History Observation Description Date Details (start date - stop date) Uses tobacco in other forms Sex Assigned At : Social History Observation Description Sex Assigned At Unknown Church: Question Answer Notes Church No restoration beliefs that would impact health care. Alcohol [...] FOR REFERRAL No Information VITAL SIGNS Weight 161 lbs 24 Aug, 2021 Height 61 in Dec, BMI 30.42 kg/m2 Dec, Heart Rate 99 /min Dec, Respiratory Rate 18 /min Dec, Temperature 97.4 degrees Fahrenheit Dec, Oximetry 91 Dec, Blood pressure systolic 128 mm Hg Dec, Blood pressure diastolic 66 mm Hg Dec, MEDICATIONS Medication SIG (Take, Route, Frequency, Duration) Notes Start Da te End Date Status Oxybutynin Chloride ER 5 MG 1 tablet Orally Once a day for 30 da y(s) Dec, Active Cranberry 250 MG as directed Orally Active Oxybutynin Chloride ER 10 MG 1 tablet Orally Once a day for 30 day(s) Active May Have - control Active Pyridium 100 MG 2 tablets after meals Orally Three times a day f or 30 day(s) Dec, Active Cod Liver Oil - as directed Orally A ctive Magnesium 500 MG 2 tablet with a meal Orally Once a day Active PROCEDURES from 1991 to 2021-01-20 Procedure Date Ordered Result Body Site Med: Lidocaine Jelly 2% 6ml Intravesically (Glydo) 2021-01-04 N/A RESULTS No Results REASON FOR VISIT stent removal MEDICAL (GENERAL) HISTORY Type Description Date Medical History kidney stones Medical History duplex kidney Surgical History cysto with stent placement 12/2020 Surgical History leap Surgical History right little toe reconstruction Surgical History cysto with stent removal 01/04/2021 Hospitalization History stent placement 12/2020 Goals Section No Information Health Concerns No Information MEDICAL EQUIPMENT No Information MENTAL STATUS No Information FUNCTIONAL STATUS No Information ASSESSMENTS Encounter Date Diagnosis Assessment Notes Treatment Notes Treatm ent Clinical Notes Dec, Retained ureteral stent (ICD-10 - Z96.0) Dec, Kidney duplication (ICD-10 - Q63.0) Dec, Kidney stones (ICD-10 - N20.0) Dec, Pyelonephritis (ICD-10 - N12) PLAN OF TREATMENT Treatment Notes Test Name Order Date [facility] Voiding Cystourethrogram 2021-01-04 Next Appt Details f/u post vcug Reason:repeated left pyelo ... Provider Name:Ke Rascon, 2021-09-2 2 01:30:00 PM, [address], , [place], [address], Follow Up:f/u post vcugrepeated left pyelo... Insurance Providers Payer Name Payer Address Payer Phone Insured Name Patient Relati onship to Insured Coverage Start Date Coverage End Date [facility] [employer] [address] [place] [address] MURALI GALEAS self
--- OUTSIDE RECORDS SUMMARY | 2021-04-18 09:38 | CCD ---
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 3 4539678 Problem Kidney stones N20.0 Active confirmed 698942 07 Problem Retained ureteral stent Z96.0 Active confirmed 475221429 Problem Preop testing Z01.818 Active confirmed 31303 9001 Problem Kidney stone N20.0 Active confirmed 0091855 7 Problem UTI (urinary tract infection) N39.0 Active confirm ed 61059359 Problem OAB (overactive bladder) N32.81 Active confirmed 240970226 Problem VUR (vesicoureteric reflux) N13.70 Active confirmed 131037057 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 226309080 Problem Overactive bladder N32.81 Active confirmed 7 60646658 ALLERGIES No Known Allergies ENCOUNTERS from 1991 to 2021-04-12 Encounter Location Date Provider Diagnosis [facility] [address] [phone] [place] [address] Mar, Skyler Reza Preop testing Z01.818 ; VUR (vesicourete esther reflux) N13.70 and UTI (urinary tract infection) N39.0 IMMUNIZATIONS No Information SOCIAL HISTORY Tobacco Use: Social History Observation Description Date Details (start date - stop date) Uses tobacco in other forms Sex Assigned At : Social History Observation Description Sex Assigned At Unknown Mormonism: Question Answer Notes Mormonism No presybeterian beliefs that would impact health care. Alcohol [...] REASON FOR REFERRAL No Information VITAL SIGNS No information MEDICATIONS Medication SIG (Take, Route, Frequency, Duration) Notes Start Da te End Date Status Pyridium 100 MG 2 tablets after meals Orally Three times a day f or 30 day(s) Dec, Not-Taking Cranberry 250 MG as directed Orally Active Myrbetriq 25 MG 1 tablet Orally Once a day for 30 day(s) 2 3 Jan, 2021 Not-Taking Oxybutynin Chloride ER 10 MG 1 tablet Orally Once a day for 30 day(s) Not-Taking Magnesium 500 MG 2 tablet with a meal Orally Once a day Active May Have - control Active Oxybutynin Chloride ER 5 MG 1 tablet Orally Once a day for 30 da y(s) Dec, Not-Taking Cod Liver Oil - as directed Orally A ctive Myrbetriq 50 MG 1 tablet Orally Once a day for 30 day(s) 2 2 Jan, 2021 Active PROCEDURES No Information RESULTS No Results REASON FOR VISIT Lab Order MEDICAL (GENERAL) HISTORY Type Description Date Medical [...] cysto with stent placement 12/2020 Surgical History leep Surgical History right little toe reconstruction Surgical History cysto with stent removal 01/04/2021 Hospitalization History stent placement 12/2020 Goals Section No Information Health Concerns No Information MEDICAL EQUIPMENT No Information MENTAL STATUS No Information FUNCTIONAL STATUS No Information ASSESSMENTS Encounter Date Diagnosis Assessment Notes Treatment Notes Treatm ent Clinical Notes Mar, Preop testing (ICD-10 - Z01.818) Mar, VUR (vesicoureteric reflux) (ICD-10 - N13.70) Mar, UTI (urinary tract infection) (ICD-10 - N39.0) PLAN OF TREATMENT Pending Tests Test Name Order Date UA URINALYSIS 2021-04-11 Insurance Providers Payer Name Payer Address Payer Phone Insured Name Patient Relati onship to Insured Coverage Start Date Coverage End Date [facility] [employer] [address] [place] [address] MURALI GALEAS self
--- OUTSIDE RECORDS SUMMARY | 2021-04-18 09:38 | CCD ---
Author Author [facility] Organization [facility] Address Unknown Phone Unavailable Care Team Providers Care Chicken Boner Name Role Phone Abiodun Ke Unavailable PROBLEMS Type Condition ICD9-CM Code [id number] Code Onset Dates Condition S tatus W/U Status Risk SNOMED Code Notes Problem Kidney stone N20.0 Active confirmed 7400064 7 Problem VUR (vesicoureteric reflux) N13.70 Active confirmed 928446160 Problem OAB (overactive bladder) N32.81 Active confirmed 437651113 Problem Kidney stones N20.0 Active confirmed 707172 07 Problem Retained ureteral stent Z96.0 Active confirmed 229115252 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 3 1416130 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 143185884 ALLERGIES No Known Allergies ENCOUNTERS from 1991 to 2021-02-03 Encounter Location Date Provider Diagnosis [facility] Urology [address] [phone] [place] [address] Jan, Ke Rascon OAB (overactive bladder) N32.81 IMMUNIZATIONS No Information SOCIAL HISTORY Tobacco Use: Social History Observation Description Date Details (start date - stop date) Uses tobacco in other forms Sex Assigned At : Social History Observation Description Sex Assigned At Unknown Sabianist: Question Answer Notes Sabianist No baptist beliefs that would impact health care. Alcohol [...] Information RESULTS No Results REASON FOR VISIT myrbetriq script MEDICAL (GENERAL) HISTORY Type Description Date Medical [...] Jan, OAB (overactive bladder) (ICD-10 - N32.81) PLAN OF TREATMENT Medication Medication Name Sig Start Date Stop Date Myrbetriq 25 MG 1 tablet Orally Once a day for 30 day(s) Jan, Myrbetriq 50 MG 1 tablet Orally Once a day for 30 day(s) Jan, Next Appt Details Provider Name:Ke Rascon, 2020-10-2 2 01:45:00 PM, [address], , [place], [address], Insurance Providers Payer Name Payer Address Payer Phone Insured Name Patient Relati onship to Insured Coverage Start Date Coverage End Date [facility] [employer] [address] [place] [address] MURALI GALEAS self
--- OUTSIDE RECORDS SUMMARY | 2021-04-18 09:38 | CCD ---
Author Author [facility] Organization [facility] Address Unknown Phone Unavailable Care Team Providers Care V Belt Curer Name Role Phone [facility] Unavailable UNKNOWN, [facility] M[facility] Unavailable Unavailable SHARON, LEANNE AYLA PA Unavailable Unavailable SHARON, LEANNE AYLA PA Unavailable Unavailable SHARON, LEANNE AYLA PA Unavailable Unavailable SHARON, LEANNE AYLA PA Unavailable Unavailable SHARON, LEANNE AYLA PA Unavailable Unavailable SHARON, LEANNE AYLA PA Unavailable Unavailable SHARON, LEANNE AYLA PA Unavailable Unavailable SHARON, LEANNE AYLA PA Unavailable Unavailable SHARON, LEANNE AYLA PA Unavailable Unavailable SHARON, LEANNE AYLA PA Unavailable Unavailable SHARON, LEANNE AYLA PA Unavailable Unavailable SHARON, LEANNE AYLA PA Unavailable Unavailable SHARON, LEANNE AYLA PA Unavailable Unavailable SHARON, LEANNE AYLA PA Unavailable Unavailable SHARON, LEANNE AYLA PA Unavailable Unavailable SHARON, LEANNE AYLA PA Unavailable Unavailable SHARON, LEANNE AYLA PA Unavailable Unavailable SHARON, LEANNE AYLA PA Unavailable Unavailable SHARON, LEANNE AYLA PA Unavailable Unavailable SHARON, LEANNE AYLA PA Unavailable Unavailable SHARON, LEANNE AYLA PA Unavailable Unavailable SHARON, LEANNE AYLA PA Unavailable Unavailable Jos PAC, Kiran Unavailable Unavailable Lindside PAC, Kiran Unavailable Unavailable Lindside PAC, Kiran Unavailable Unavailable Lindside PAC, Kiran Unavailable Unavailable Jos PAC, Kiran Unavailable Unavailable Lindside PAC, Kiran Unavailable Unavailable Lindside PAC, Kiran Unavailable Unavailable Lindside PAC, Kiran Unavailable Unavailable Dykes, C Mian MD Unavailable Unavailable Dykes, C Mian MD Unavailable Unavailable Dykes C Mian MD Unavailable Unavailable Dykes, C Mian MD Unavailable Unavailable Dykes C Mian MD Unavailable Unavailable Dykes, C Mian MD Unavailable Unavailable Dykes C Mian MD Unavailable Unavailable Dykes C Mian MD Unavailable Unavailable Dykes C Mian MD Unavailable Unavailable Dykes C Mian MD Unavailable Unavailable Dykes C Mian MD Unavailable Unavailable Dykes C Mian MD Unavailable Unavailable Dykes C Mian MD Unavailable Unavailable DykesDavid Mian MD Unavailable Unavailable Dykes C Mian MD Unavailable Unavailable DykesDavidyll MD Unavailable Unavailable DykesDavidyll MD Unavailable Unavailable DykesDavidyll MD Unavailable Unavailable DykesDavid Mian MD Unavailable Unavailable Dykes C Mian MD Unavailable Unavailable Dykes C Mian MD Unavailable Unavailable Dykes, C Mian MD Unavailable Unavailable Dykes C Mian MD Unavailable Unavailable Dykes C Mian MD Unavailable Unavailable Dykes C Mian MD Unavailable Unavailable Dykes C Mian MD Unavailable Unavailable Dykes C Mian MD Unavailable Unavailable Dykes C Mian MD Unavailable Unavailable Dykes C Mian MD Unavailable Unavailable Dykes C Mian MD Unavailable Unavailable Dykes, C Mian MD Unavailable Unavailable Dykes C Mian MD Unavailable Unavailable Dykes C Mian MD Unavailable Unavailable Dykes, C Mian MD Unavailable Unavailable Dykes C Mian MD Unavailable Unavailable Dykes, C Mian MD Unavailable Unavailable Dykes, C Mian MD Unavailable Unavailable Dykes, C Mian MD Unavailable Unavailable Dykes, C Mian MD Unavailable Unavailable OBEN, T MARIPOSA MD Unavailable Unavailable OBEN, T MARIPOSA MD Unavailable Unavailable OBEN, T MARIPOSA MD Unavailable Unavailable OBEN, T MARIPOSA MD Unavailable Unavailable OBEN, T MARIPOSA MD Unavailable Unavailable OBEN, T MARIPOSA MD Unavailable Unavailable OBEN, T MARIPOSA MD Unavailable Unavailable OBEN, T MARIPOSA MD Unavailable Unavailable OBEN, T MARIPOSA MD Unavailable Unavailable OBEN, T MARIPOSA MD Unavailable Unavailable OBEN, T MARIPOSA MD Unavailable Unavailable OBEN, T MARIPOSA MD Unavailable Unavailable OBEN, T MARIPOSA MD Unavailable Unavailable OBEN, T MARIPOSA MD Unavailable Unavailable OBEN, T MARIPOSA MD Unavailable Unavailable OBEN, T MARIPOSA MD Unavailable Unavailable OBEN, T MARIPOSA MD Unavailable Unavailable OBEN, T MARIPOSA MD Unavailable Unavailable OBEN, T MARIPOSA MD Unavailable Unavailable OBEN, T MARIPOSA MD Unavailable Unavailable OBEN, T MARIPOSA MD Unavailable Unavailable OBEN, T MARIPOSA MD Unavailable Unavailable OBEN, T MARIPOSA MD Unavailable Unavailable OBEN, T MARIPOSA MD Unavailable Unavailable OBEN, T MARIPOSA MD Unavailable Unavailable OBEN, T MARIPOSA MD Unavailable Unavailable OBEN, T MARIPOSA MD Unavailable Unavailable OBEN, T MARIPOSA MD Unavailable Unavailable OBEN, T MARIPOSA MD Unavailable Unavailable OBEN, T MARIPOSA MD Unavailable Unavailable OBEN, T MARIPOSA MD Unavailable Unavailable OBEN, T MARIPOSA MD Unavailable Unavailable OBEN, T MARIPOSA MD Unavailable Unavailable OBEN, T MARIPOSA MD Unavailable Unavailable OBEN, T MARIPOSA MD Unavailable Unavailable OBEN, T MARIPOSA MD Unavailable Unavailable OBEN, T MARIPOSA MD Unavailable Unavailable OBEN, T MARIPOSA MD Unavailable Unavailable OBEN, T MARIPOSA MD Unavailable Unavailable OBEN, T MARIPOSA MD Unavailable Unavailable OBEN, T MARIPOSA MD Unavailable Unavailable OBEN, T MARIPOSA MD Unavailable Unavailable OBEN, T MARIPOSA MD Unavailable Unavailable OBEN, T MARIPOSA MD Unavailable Unavailable OBEN, T MARIPOSA MD Unavailable Unavailable OBEN, T MARIPOSA MD Unavailable Unavailable OBEN, T MARIPOSA MD Unavailable Unavailable OBEN, T MARIPOSA MD Unavailable Unavailable OBEN, T MARIPOSA MD Unavailable Unavailable OBEN, T MARIPOSA MD Unavailable Unavailable OBEN, T MARIPOSA MD Unavailable Unavailable OBEN, T MARIPOSA MD Unavailable Unavailable OBEN, T MARIPOSA MD Unavailable Unavailable OBEN, T MARIPOSA MD Unavailable Unavailable OBEN, T MARIPOSA MD Unavailable Unavailable OBEN, T MARIPOSA MD Unavailable Unavailable OBEN, T MARIPOSA MD Unavailable Unavailable OBEN, T MARIPOSA MD Unavailable Unavailable Freeman, T Jhonny Unavailable Unavailable Freeman, T Jhonny Unavailable Unavailable Freeman, T Jhonny Unavailable Unavailable Freeman, T Jhonny Unavailable Unavailable Freeman, T Jhonny Unavailable Unavailable Freeman, T Jhonny Unavailable Unavailable Freeman, T Jhonny Unavailable Unavailable Freeman, T Jhonny Unavailable Unavailable Freeman, T Jhonny Unavailable Unavailable Freeman, T Jhonny Unavailable Unavailable Freeman, T Jhonny Unavailable Unavailable Freeman, T Jhonny Unavailable Unavailable Freeman, T Jhonny Unavailable Unavailable Freeman, T Jhonny Unavailable Unavailable OBEN, T MARIPOSA MD Unavailable Unavailable OBEN, T MARIPOSA MD Unavailable Unavailable OBEN, T MARIPOSA MD Unavailable Unavailable OBEN, T MARIPOSA MD Unavailable Unavailable OBEN, T MARIPOSA MD Unavailable Unavailable OBEN, T MARIPOSA MD Unavailable Unavailable OBEN, T MARIPOSA MD Unavailable Unavailable OBEN, T MARIPOSA MD Unavailable Unavailable OBEN, T MARIPOSA MD Unavailable Unavailable OBEN, T MARIPOSA MD Unavailable Unavailable OBEN, T MARIPOSA MD Unavailable Unavailable OBEN, T MARIPOSA MD Unavailable Unavailable OBEN, T MARIPOSA MD Unavailable Unavailable OBEN, T MARIPOSA MD Unavailable Unavailable OBEN, T MARIPOSA MD Unavailable Unavailable OBEN, T MARIPOSA MD Unavailable Unavailable OBEN, T MARIPOSA MD Unavailable Unavailable OBEN, T MARIPOSA MD Unavailable Unavailable OBEN, T MARIPOSA MD Unavailable Unavailable OBEN, T MARIPOSA MD Unavailable Unavailable OBEN, T MARIPOSA MD Unavailable Unavailable OBEN, T MARIPOSA MD Unavailable Unavailable OBEN, T MARIPOSA MD Unavailable Unavailable OBEN, T MARIPOSA MD Unavailable Unavailable OBEN, T MARIPOSA MD Unavailable Unavailable OBEN, T MARIPOSA MD Unavailable Unavailable OBEN, T MARIPOSA MD Unavailable Unavailable OBEN, T MARIPOSA MD Unavailable Unavailable OBEN, T MARIPOSA MD Unavailable Unavailable OBEN, T MARIPOSA MD Unavailable Unavailable OBEN, T MARIPOSA MD Unavailable Unavailable OBEN, T MARIPOSA MD Unavailable Unavailable OBEN, T MARIPOSA MD Unavailable Unavailable OBEN, T MARIPOSA MD Unavailable Unavailable OBEN, T MARIPOSA MD Unavailable Unavailable OBEN, T MARIPOSA MD Unavailable Unavailable OBEN, T MARIPOSA MD Unavailable Unavailable OBEN, T MARIPOSA MD Unavailable Unavailable OBEN, T MARIPOSA MD Unavailable Unavailable OBEN, T MARIPOSA MD Unavailable Unavailable OBEN, T MARIPOSA MD Unavailable Unavailable OBEN, T MARIPOSA MD Unavailable Unavailable OBEN, T MARIPOSA MD Unavailable Unavailable OBEN, T MARIPOSA MD Unavailable Unavailable OBEN, T MARIPOSA MD Unavailable Unavailable OBEN, T MARIPOSA MD Unavailable Unavailable OBEN, T MARIPOSA MD Unavailable Unavailable OBEN, T MARIPOSA MD Unavailable Unavailable OBEN, T MARIPOSA MD Unavailable Unavailable OBEN, T MARIPOSA MD Unavailable Unavailable OBEN, T MARIPOSA MD Unavailable Unavailable OBEN, T MARIPOSA MD Unavailable Unavailable OBEN, T MARIPOSA MD Unavailable Unavailable OBEN, T MARIPOSA MD Unavailable Unavailable OBEN, T MARIPOSA MD Unavailable Unavailable OBEN, T MARIPOSA MD Unavailable Unavailable OBEN, T MARIPOSA MD Unavailable Unavailable OBEN, T MARIPOSA MD Unavailable Unavailable SCOT, L LORRIE MD Unavailable Unavailable SCOT, L LORRIE MD Unavailable Unavailable SCOT, L LORRIE MD Unavailable Unavailable SCOT, L LORRIE MD Unavailable Unavailable SCOT, L LORRIE MD Unavailable Unavailable SCOT, L LORRIE MD Unavailable Unavailable SCOT, L LORRIE MD Unavailable Unavailable SCOT, L LORRIE MD Unavailable Unavailable SCOT, L LORRIE MD Unavailable Unavailable SCOT, L LORRIE MD Unavailable Unavailable SCOT, L LORRIE MD Unavailable Unavailable SCOT, L LORRIE MD Unavailable Unavailable SCOT, L LORRIE MD Unavailable Unavailable SCOT, L LORRIE MD Unavailable Unavailable SCOT, L LORRIE MD Unavailable Unavailable SCOT, L LORRIE MD Unavailable Unavailable SCOT, L LORRIE MD Unavailable Unavailable SCOT, L LORRIE MD Unavailable Unavailable SCOT, L LORRIE MD Unavailable Unavailable SCOT, L LORRIE MD Unavailable Unavailable [facility]_[id number], [id number] Unavailable +[phone] [facility]_[id number], [id number] Unavailable +1(315)- 8 [id number], [id number] Unavailable +1(315)- 8 [id number], [id number] Unavailable +1(315)- 8 [facility]_[id number], [id number] Unavailable +1(315)- 8 [facility][id number], [id number] Unavailable +1(315)- 8 [facility]4785, [id number] Unavailable +1(315)- 8 [facility]_[id number], [id number] Unavailable +1(315)- 8 [facility]4785, [id number] Unavailable +1([phone])- [phone] [facility]_[id number], [id number] Unavailable +1([phone])- [phone] [facility][id number], [id number] Unavailable +1([phone])- [phone] [facility][id number], [id number] Unavailable +1([phone])- [phone] [facility][id number], [id number] Unavailable +1()- 8 [facility][id number], [id number] Unavailable +1()- 8 [facility][id number], [id number] Unavailable +1()- 8 [id number], [id number] Unavailable +1()- 8 SHARON, LEANNE AYLA PA Unavailable Unavailable SHARON, LEANNE AYLA PA Unavailable Unavailable SHARON, LEANNE AYLA PA Unavailable Unavailable SHARON, LEANNE AYLA PA Unavailable Unavailable SHARON, LEANNE AYLA PA Unavailable Unavailable SHARON, LEANNE AYLA PA Unavailable Unavailable SHARON, LEANNE AYLA PA Unavailable Unavailable SHARON, LEANNE AYLA PA Unavailable Unavailable SHARON, LEANNE AYLA PA Unavailable Unavailable SHARON, LEANNE AYLA PA Unavailable Unavailable SHARON, LEANNE AYLA PA Unavailable Unavailable SHARON, LEANNE AYLA PA Unavailable Unavailable SHARON, LEANNE AYLA PA Unavailable Unavailable SHARON, LEANNE AYLA PA Unavailable Unavailable SHARON, LEANNE AYLA PA Unavailable Unavailable SHARON, LEANNE AYLA PA Unavailable Unavailable SHARON, LAENNE AYLA PA Unavailable Unavailable SHARON, LEANNE AYLA PA Unavailable Unavailable SHARON, LEANNE AYLA PA Unavailable Unavailable SHARON, LEANNE AYLA PA Unavailable Unavailable SHARON, LEANNE AYLA PA Unavailable Unavailable SHARON, LEANNE AYLA PA Unavailable Unavailable Re-disclosure Warning The records that you are about to access may contain information from federally-assisted alcohol or drug abuse programs. If such information is present, then the following federally mandated warning applies: This information has been disclosed to you from records protected by federal confidentiality rules (42 CFR part 2). The federal rules prohibit you from making any further disclosure of this information unless further disclosure is expressly permitted by the written consent of the person to whom it pertains or as otherwise permitted by 42 CFR part 2. A general authorization for the release of medical or other information is NOT sufficient for this purpose. The Federal rules restrict any use of the information to criminally investigate or prosecute any alcohol or drug abuse patient.The records that you are about to access may contain highly sensitive health information, the redisclosure of which is protected by Article 27-F of the [facility] Public Health law. If you continue you may have access to information: Regarding HIV / AIDS; Provided by facilities licensed or operated by the [facility] Office of Mental Health; or Provided by the [facility] Office for People With Developmental Disabilities. If such information is present, then the following [facility] mandated warning applies: This information has been disclosed to you from confidential records which are protected by state law. State law prohibits you from making any further disclosure of this information without the specific written consent of the person to whom it pertains, or as otherwise permitted by law. Any unauthorized further disclosure in violation of state law may result in a fine or fdc sentence or both. A general authorization for the release of medical or other information is NOT sufficient authorization for further disc losure. Encounters Encounter Providers Location Date Indications Data Source(s ) Unknown [address] [facility] [id number] 04/11/2021 12:00:00 AM EST eCW1 (Formerly [facility]) Emergency Attender: LORRIE ELLISON MDConsultant: MATT PATTERSON 03/19/2021 01:17:00 PM EDT - 03/19/2021 06:32:00 PM EDT [facility] Patient discharged. Outpatient Attender: Mian Casarez MDReferrer: Jhonny Freeman 07 [id number] 02/18/2021 12:00:00 AM EDT [facility] Unknown [address] [facility] [id number] 02/03/2021 12:00:00 AM EDT eCW1 (Formerly [facility]) Outpatient [address] [facility] [id number] 02/02/2021 12:00:00 AM EDT eCW1 (Formerly [facility]) Unknown [address] [facility] [id number] 01/05/2021 12:00:00 AM EDT eCW1 (Formerly [facility]) (Cysto1) Urology [address] [place] [address] 01/04/2021 12:00:00 AM EDT eCW1 (Formerly [facility]) [place] [address] [facility] [address] 12/23/2020 12:00:00 AM EDT eCW1 (Formerly [facility]) [place] [address] [facility] [address] 12/20/2020 12:00:00 AM EDT eCW1 (Formerly [facility]) Emergency Attender: AYLA HERRERA PAReferrer: [phone] [id number] [facility]_[id number] EMERGENCY ROOM-ER 12/02/2020 10:49:00 PM EDT - 12/02/2020 11:15:00 PM EDT [facility] Patient discharged. Outpatient Attender: AYLA HERRERA PAConsultant: [facility] osp [id number] 12/02/2020 09:42:00 PM EDT [facility] Outpatient Attender: MARIPOSA RODRIGUEZ MD 05/18/19 02:26:00 PM EST - 05/18/2020 02:26:00 PM [facility] Outpatient Attender: MARIPOSA RODRIGUEZ MD Family Practice 05/18/2020 01:30:0 0 PM EST [facility] ([facility]) Outpatient Attender: Kiran MICHELLE 04/13 09:37:00 AM EST - 04/29/2020 10:37:00 AM [facility] Outpatient Attender: MARIPOSA RODRIGUEZ MD 04/14/20 12:56:00 PM EST - 04/14/2020 12:56:00 PM [facility] Outpatient Attender: MARIPOSA RODRIGUEZ MD Family Practice 04/14/2020 12:00:0 0 PM EST [facility] ([facility]) Immunizations Vaccine Date Status Description Data Source(s) COVID-19 VACCINE Pfizer 08/04/2020 12:00:00 AM EDT completed [facility] Vaccine Series Complete: NOThis Data was Submitted to [facility] Via [employer]. Medications Medication Brand Name Start Date Product Form Dose Route Admi nistrative Instructions Pharmacy Instructions Status Indications Reaction Description Data Source(s) 24 HR mirabegron 25 MG Extended Release Oral Tablet [M yrbetriq] Myrbetriq 25 MG Myrbetriq 25 MG 02/03/2021 12:00:00 AM EDT 1.0 {tablet} active Myrbetriq 25 MG eCW1 ([facility]) 24 HR mirabegron 25 MG Extended Release Oral Tablet [M yrbetriq] Myrbetriq 25 MG Myrbetriq 25 MG 02/03/2021 12:00:00 AM EDT 1.0 {tablet} active Myrbetriq 25 MG eCW1 ([facility]) 24 HR mirabegron 25 MG Extended Release Oral Tablet [M yrbetriq] Myrbetriq 25 MG Myrbetriq 25 MG 02/03/2021 12:00:00 AM EDT 1.0 {tablet} suspended Myrbetriq 25 MG eCW1 ([facility]) 24 HR mirabegron 50 MG Extended Release Oral Tablet [M yrbetriq] Myrbetriq 50 MG Myrbetriq 50 MG 02/02/2021 12:00:00 AM EDT 1.0 {tablet} active Myrbetriq 50 MG eCW1 ([facility]) 24 HR mirabegron 50 MG Extended Release Oral Tablet [M yrbetriq] Myrbetriq 50 MG Myrbetriq 50 MG 02/02/2021 12:00:00 AM EDT 1.0 {tablet} active Myrbetriq 50 MG eCW1 ([facility]) 24 HR mirabegron 50 MG Extended Release Oral Tablet [M yrbetriq] Myrbetriq 50 MG Myrbetriq 50 MG 02/02/2021 12:00:00 AM EDT 1.0 {tablet} active Myrbetriq 50 MG eCW1 ([facility]) 24 HR Oxybutynin chloride 5 MG Extended Release Oral Tablet Oxybutynin Chloride ER 5 MG Oxybutynin Chloride ER 5 MG 12/20/2020 12:00:00 AM EDT 1.0 {tablet} active Oxybutynin Chloride ER 5 MG eCW1 ([facility]) Phenazopyridine hydrochloride 100 MG Oral Tablet [Pyri dium] Pyridium 100 MG Pyridium 100 MG 12/20/2020 12:00:00 AM EDT 2.0 {tablets_after_meals} suspended Pyridium 100 MG eCW1 ([facility]) 24 HR Oxybutynin chloride 5 MG Extended Release Oral Tablet Oxybutynin Chloride ER 5 MG Oxybutynin Chloride ER 5 MG 12/20/2020 12:00:00 AM EDT 1.0 {tablet} suspended Oxybutynin Chloride ER 5 MG eCW1 ([facility]) 24 HR Oxybutynin chloride 5 MG Extended Release Oral Tablet Oxybutynin Chloride ER 5 MG Oxybutynin Chloride ER 5 MG 12/20/2020 12:00:00 AM EDT 1.0 {tablet} suspended Oxybutynin Chloride ER 5 MG eCW1 ([facility]) 24 HR Oxybutynin chloride 5 MG Extended Release Oral Tablet Oxybutynin Chloride ER 5 MG Oxybutynin Chloride ER 5 MG 12/20/2020 12:00:00 AM EDT 1.0 {tablet} active Oxybutynin Chloride ER 5 MG eCW1 ([facility]) Phenazopyridine hydrochloride 100 MG Oral Tablet [Pyri dium] Pyridium 100 MG Pyridium 100 MG 12/20/2020 12:00:00 AM EDT 2.0 {tablets_after_meals} suspended Pyridium 100 MG eCW1 ([facility]) Phenazopyridine hydrochloride 100 MG Oral Tablet [Pyri dium] Pyridium 100 MG Pyridium 100 MG 12/20/2020 12:00:00 AM EDT 2.0 {tablets_after_meals} active Pyridium 100 MG eCW1 ([facility]) Phenazopyridine hydrochloride 100 MG Oral Tablet [Pyri dium] Pyridium 100 MG Pyridium 100 MG 12/20/2020 12:00:00 AM EDT 2.0 {tablets_after_meals} suspended Pyridium 100 MG eCW1 ([facility]) Phenazopyridine hydrochloride 100 MG Oral Tablet [Pyri dium] Pyridium 100 MG Pyridium 100 MG 12/20/2020 12:00:00 AM EDT 2.0 {tablets_after_meals} active Pyridium 100 MG eCW1 ([facility]) 24 HR Oxybutynin chloride 5 MG Extended Release Oral Tablet Oxybutynin Chloride ER 5 MG Oxybutynin Chloride ER 5 MG 12/20/2020 12:00:00 AM EDT 1.0 {tablet} suspended Oxybutynin Chloride ER 5 MG eCW1 ([facility]) 24 HR Oxybutynin chloride 5 MG Extended Release Oral Tablet Oxybutynin Chloride ER 5 MG Oxybutynin Chloride ER 5 MG 12/20/2020 12:00:00 AM EDT 1.0 {tablet} active Oxybutynin Chloride ER 5 MG eCW1 ([facility]) Phenazopyridine hydrochloride 100 MG Oral Tablet [Pyri dium] Pyridium 100 MG Pyridium 100 MG 12/20/2020 12:00:00 AM EDT 2.0 {tablets_after_meals} active Pyridium 100 MG eCW1 ([facility]) Phenazopyridine hydrochloride 100 MG Oral Tablet [Pyri dium] Pyridium 100 MG Pyridium 100 MG 12/20/2020 12:00:00 AM EDT 2.0 {tablets_after_meals} active Pyridium 100 MG eCW1 ([facility]) 24 HR Oxybutynin chloride 5 MG Extended Release Oral Tablet Oxybutynin Chloride ER 5 MG Oxybutynin Chloride ER 5 MG 12/20/2020 12:00:00 AM EDT 1.0 {tablet} active Oxybutynin Chloride ER 5 MG eCW1 ([facility]) NITROFURANTOIN, MACROCRYSTALS 25 MG / Ni trofurantoin, Monohydrate 75 MG Oral Capsule [Macrobid] Macrobid 04/20/2020 12:00:00 AM EST ORAL completed [facility] ([facility]) Sulfamethoxazole 800 MG / Trimethoprim 160 MG Oral Tablet [B actrim] Bactrim DS 04/19/2020 12:00:00 AM EST ORAL completed [facility] ([facility]) Insurance Providers Payer name Policy type / Coverage type Policy ID Covered constitution party ID Covered constitution party's relationship to jolley Policy Jolley Plan Information [facility] [id number] Self [id number] [facility] ACTIVE DUTY [id number] SP [id number] [facility] [employer] [place] [id number] 18 [id number] [facility] [id number] S [id number] [facility] [place] [id number] 18 [id number] [facility] [place] [id number] 18 [id number] Problems, Conditions, and Diagnoses Code Display Name Description Problem Type Effective Dates Data Source(s) Y9[address] or not applicable Unspecified place or not applicable Diagnosis 03/19/2021 01:17:00 PM [facility] [id number] Exposure to other specified factors, ini tial encounter Exposure to other specified factors, initial encounter Diagnosis 03/19/2021 01:17:00 PM [facility] [id number] Personal history of other (healed) physi yancy injury and trauma Personal history of other (healed) physical injury and trauma Diagnosis 1 05/19/2020 01:17:00 PM [facility] D71747 Nicotine dependence, other tobacco produ ct, uncomplicated Nicotine dependence, other tobacco product, uncomplicated Diagnosis 03/19 01:17:00 PM [facility] [id number] Injury of conjunctiva and co rneal abrasion without foreign body, right eye, initial encounter Injury of conjunctiva and corneal abrasi on without foreign body, right eye, initial encounter Diagnosis 03/19/2021 01:17: 00 PM [facility] H5711 Ocular pain, right eye Ocular pain, right eye Diagnosi s 03/19/2021 01:17:00 PM [facility] N30.01 Acute cystitis with hematuria ACUTE CYSTITIS WITH JAQUI TURIA Diagnosis 12/02/2020 10:49:00 PM [facility] M54.5 Low back pain LOW BACK PAIN Diagnosis 12/02/2020 10:49:00 PM [facility] 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, unspe cified Congenital malformation of kidney, unspecified Diagnosis 05/18/2020 02:26:00 PM [facility] N200 Calculus of kidney Calculus of kidney Diagnosis 02:26:00 PM [facility] R8271 Bacteriuria Bacteriuria Diagnosis 05/18/2020 02:26:00 PM [facility] N2889 Other specified disorders of kidney and ureter Other specified disorders of kidney and ureter Diagnosis 04/29/2020 09:37:00 AM [facility] R350 Frequency of micturition Frequency of micturition Diag nosis 04/14/2020 12:56:00 PM EST [facility] R8281 Pyuria Pyuria Diagnosis 04/14/2020 12:56:00 PM ES T [facility] N39.0 Urinary tract infectious disease UTI (urinary tract in fection) Problem 03/15/2021 12:00:00 AM EDT eCW1 ([facility]) Z01.818 Pre-procedure evaluation check Preop testing Problem 03/15/2021 12:00:00 AM EDT eCW1 ([facility]) N32.81 [id number] Overactive bladder Problem 03/04/2021 12:00: 00 AM EDT eCW1 ([facility]) 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 02/02/2021 12:00:00 AM EDT eCW1 ([facility]) N13.70 [id number] VUR (vesicoureteric reflux) Problem 02/03/20 12:00:00 AM EDT eCW1 ([facility]) N32.81 [id number] OAB (overactive bladder) Problem 02/02/2021 12:00:00 AM EDT eCW1 ([facility]) Z96.0 [id number] Retained ureteral stent Problem 01/04/2021 1 2:00:00 AM EDT eCW1 ([facility]) N20.0 [id number] Kidney stones Problem 01/04/2021 12:00:00 AM EDT eCW1 ([facility]) 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 01/04/2021 12:00: 00 AM EDT eCW1 ([facility]) N20.0 [id number] Kidney stone Problem 12/20/2020 12:00:00 AM EDT eCW1 ([facility]) Surgeries/Procedures Procedure Description Date Indications Data Source(s) Med: Lidocaine Jelly 2% 6ml Intravesically (Glydo) 01/04/2021 12:00:00 AM EDT eCW1 ([facility]) Results ID Date Data Source [id number] 03/19/2021 01:17:00 PM EDT [facility] 1 OrderSheet [facility] Emergency Department [address] [place] [address] Phone #: ext- [phone] 03/19/2021 13:17 Patient: DANIEL GALEAS Sex: F : 1990 Age: 30yWEIGHT:72.1 kg (S) HEIGHT:61 inches (S) BMI:30.0ALLERGIES: No Known Drug AllergyCHIEF COMPLAINT: painDIAGNOSIS: Corneal abrasionLAB ORDERSOrder Description Priority Entered Acknowledged InitialedDIAGNOSTIC STUDY ORDERSOrder Description Priority Entered Acknowledged InitialedMEDICATION/IV/DRIP/FLUID ORDERSOrder Description Priority Entered Acknowledged InitialedErythromycin Eye 17:50 03/19/2021 18:04 DorisOintment 1 Cong Montemayor- David;GENERAL ORDERSOrder Description Priority Entered Acknowledged Initialed[Electronically signed by Maday Mcnally RN (18:41 03/19/2021)][Electronically signed by Cong Jesus P.A.-C (01:13 03/20/2021)][Electronically locked by Maday Mcnally RN (18:41 03/19/2021)] Name Value Range Interpretation Code Description Data Lizbeth rce(s) Supporting Document(s) ID Date Data Source [id number] 03/19/2021 01:17:00 PM EDT [facility] 1 Medication Reconciliation Report [facility] Emergency Department [address] [place] [address] Phone #: ext- [phone] 03/19/2021 13:17 Patient: DANIEL GALEAS Sex: Angelina : 1990 Age: 30yWeight: 72.1 kgHeight/Length: 61 in.BMI: 30.0ALLERGIES: No Known Drug AllergyThe patient's Home Medications are listed below:THE FOLLOWING MEDICATIONS NEED TO BE RECONCILED: Control Pills 1 pill, daily Cod Liver Oil Oral, daily Cranberry Oral, daily Magnesium Oral 1000 mg, daily Myrbetriq Oral (50 mg) 1 tablet, dailyThe source(s) of the original Home Medication information:patientThe following Medications were given to the patient in the Emergency Department:Erythromycin [Eye Ointment] Eye Ointment 1 application, administered: 18:04 03/19/2021The following Medications were prescribed to the patient:ciprofloxacin 0.3 % eye drops Instill 1 drop every four hours for 5 days -- Dispense 1 each. Refills: 0.Substitution permitted. Note to Pharmacy - USE Rx DISCOUNT CARD: $16.6, BIN:[id number],PCN:YIN, Group:[id number], ID:[id number].Pharmacy - [facility] [id number] ; [place] [address]. . -- Cong Jesus P.A.-C Name Value Range Interpretation Code Description Data Lizbeth rce(s) Supporting Document(s) ID Date Data Source [id number] 03/19/2021 01:17:00 PM EDT [facility] 1 Medication Administration Record [facility] Emergency Department [address] [place] [address] Phone #: ext- [phone] 03/19/2021 13:17 Patient: DANIEL GALEAS Sex: F : 1990 Age: 30yWeight: 72.1 kgHeight/Length: 61 inBMI: 30ALLERGIES: No Known Drug Allergy Date/Time Medication Administered Medication OrderedGiven ERYTHROMYCIN [EYE OINTMENT] Erythromycin Eye Ointment 118:04 03/19/2021 Dose: 1 application Ointment Eye Ginette Mcnally RN Ointment Name Value Range Interpretation Code Description Data Lizbeth rce(s) Supporting Document(s) ID Date Data Source [id number] 03/19/2021 01:17:00 PM EDT [facility] 1 General Instructions [facility] Emergency Department [address] [place] [address] Phone #: ext- [phone] 03/19/2021 13:17 Patient: DANIEL GALEAS Sex: F : 1990 Age: 30yMedium corneal abrasion to the right eye. No foreign body or rust ring.INSTRUCTIONSNo dietary restrictions. Do not smoke.(Recommend to utilize OTC Motrin and Tylenol to control inflammation and pain management.Recommend to follow the instructions on the bottle and not to exceed Please see eye doctor on post for eval.).Warnings: GENERAL WARNINGS: Return or contact your physician immediately if your conditionworsens or changes unexpectedly, if not improving as expected, or if other problems arise.Prescription Medications:ciprofloxacin 0.3 % eye drops Instill 1 drop every four hours for 5 days -- Dispense 1 each. Refills: 0.Substitution permitted. Note to Pharmacy - USE Rx DISCOUNT CARD: $16.6, BIN:[id number],PCN:YIN, Group:EMR, ID:[id number].Pharmacy - [facility] [phone] ; [place] [address]. .Follow-up:Return to the emergency department as needed. Follow up with your healthcare provider in about twodays if not better. Call for an appointment.Understanding of the discharge instructions verbalized by flex whitehead.Follow-up with: [facility], , , [address], [place], [address] Follow up. Reason for referral: evaluation and treatment. ADDITIONAL INFORMATIONCorneal Abrasion 2 General Instructions [facility] Emergency Department [address] [place] [address] Phone #: ext- [phone] 03/19/2021 13:17 Patient: DANIEL GALEAS Sex: F : 1990 Age: 30yYou have a scratch or scrape (abrasion) on your cornea. The cornea is the clear part in the front ofthe eye. This sensitive area is very painful when injured. You may make tears frequently, and yourvision may be blurry until the injury heals. You may be sensitive to light.This part of the body heals quickly. You can expect the pain to go away within 24 to 48 hours. If theabrasion is large or deep, your doctor may apply an eye patch, although this is not always done. Anantibiotic ointment or eye drops may also be used to prevent infection.Numbing drops may be used to relieve the pain temporarily so that your eyes can be examined. Butthese drops can't be prescribed for home use because that would prevent healing and lead to moreserious problems. Also, if you can't feel your eye, there is a chance of accidentally injuring it furtherwithout knowing it.Home care A cold pack may be applied over the eye (or eye patch) for 20 minutes at a time, to reduce pain. To make a cold pack, put ice cubes in a plastic bag that seals at the top. Wrap the bag in a clean, thin towel or cloth. You may use acetaminophen or ibuprofen to control pain, unless another pain medicine was prescribed. If you have chronic liver or kidney disease, talk with your healthcare provider before using these medicines. Also talk with your provider if you have ever had a stomach ulcer or gastrointestinal bleeding. Rest your eyes and don't read until symptoms are gone. 3 General Instructions [facility] Emergency Department [address] [place] [address] Phone #: ext- [phone] 03/19/2021 13:17 [id number] Sex: F : 1990 Age: 30y If you use contact lenses, don't wear them until all symptoms are gone. If your vision is affected by the corneal abrasion or if an eye patch was applied, don't drive a motor vehicle or operate machinery until all symptoms are gone. You may have trouble judging distances using only one eye. If your eyes are sensitive to light, try wearing sunglasses, or stay indoors until symptoms go away.Follow-up careFollow up with your healthcare provider, or as advised. If no patch was put on your eye and the pain continues for more than 48 hours, you should have another exam. Contact your healthcare provider to arrange this. If your eye was patched and you were asked to remove the patch yourself, see your healthcare provider. Contact your healthcare provider if you still have pain after the patch is removed. If you were given a return appointment for patch removal and re-examination, be sure to keep the appointment. Leaving the patch in place longer than advised could be harmful.When to seek medical adviceCall your healthcare provider right away if any of these occur. Eye pain gets worse or does not get better after 24 hours Discharge from the eye Redness of the eye or swelling of the eyelids gets worse Vision gets worse Symptoms get worse after the abrasion has healed [phone] [employer]. [address] [place] [address], [place] [address]. All rights reserved. This information is not intended as asubstitute for professional [facility] care. Always follow your healthcare professional's instructions. You have been given the following additional information: Corneal Abrasion 4 General Instructions [facility] Emergency Department [address] [place] [address] Phone #: ext- [phone] 03/19/2021 13:17 Patient: DANIEL GALEAS Sex: F : 1990 Age: 30y(Electronically signed by Cong Jesus P.A.-C 03/20/2021 01:13) Name Value Range Interpretation Code Description Data Lizbeth rce(s) Supporting Document(s) ID Date Data Source [id number] 03/19/2021 01:17:00 PM EDT [facility] 1 Clinical Report - Nurses [facility] Emergency Department [address] [place] [address] Phone #: ext- [phone] 03/19/2021 13:17 Patient: DANIEL GALEAS Sex: F : 1990 Age: 30yTRIAGEArrived by private vehicle. Historian: patient. Accompanied by friend (in vehicle).Triage time: 13:18 03/19/2021. Acuity: LEVEL 4.Chief Complaint: PAIN TO RIGHT EYE.Alert. No acute distress.Onset. (2 days ago). ( Pt states she has been having right eye pain since , but now is radiatingaround the eye, to right sinus area and to right ear; Pt states she had a corneal abrasion to the same eyein 2019 but it is not getting better. Pt states today conjunctiva is red). She has had eye discomfort andphotophobia. She has had watery discharge from the right eye. No blurred vision.Treatment SAND MIXER:(Lubricating eye drops last dose last night; Ibuprofen last dose last night; Tylenol last dose at 0400).SEPSIS SCREEN: SIRS SCREEN NEGATIVE. SEPSIS SCREEN NEGATIVE. No suspected or confirmedsigns of infection present. (13:27 03/19/2021). --13:28 03/19/21 Duyen Thompson R.N.13:18 03/19/21. BP: 133/82. MAP: 99. HR: 84. RR: 18. O2 saturation: 100% on room air. Temp: 98.7 F(oral). Pain level now 8/10. --13:28 03/19/21 Duyen Thompson R.N.late entry - 13:30 03/19/21.VISUAL ACUITY: Visual acuity performed without corrective lenses: left eye 20/30 minus one letter; righteye 20/30 minus two letters; both eyes 20/30. Patient normally wears corrective lenses. --13:45 03/19/21Duyen Thompson R.N.Weight: 72.1 kg stated. Height/Length: 61 inches Per Patient. BMI: 30. --13:18 03/19/21 Duyen Thompson R.N.MedicationsBirth Control Pills 1 pill, daily. --13:23 03/19/21 Duyen Thompson R.N. Cranberry Oral, daily. --13:23 03/19/21 Duyen Thompson R.N. Cod Liver Oil Oral, daily. --13:23 03/19/21 Duyen Thompson R.N. Magnesium Oral 1000 mg, daily. --13:23 03/19/21 Jorge Thompson R.N. Myrbetriq Oral (Tablet Extended Release 24 Hour 50 mg) 1 tablet, daily. --13:24 03/19/21 Duyen Thompson R.N.AllergiesNo Known Drug Allergy. --13:24 03/19/21 Duyen Thompson R.N. 2 Clinical Report - Nurses [facility] Emergency Department [address] [place] [address] Phone #: ext- [phone] 03/19/2021 13:17 Patient: DANIEL GALEAS Sex: F : 1990 Age: 30yPROBLEMS:Vesicoureteric reflux. --13:03/19/21 Duyen Thompson R.N.Medication/allergy information source: the patient. --13:03/19/21 Duyen Thompson R.N.ADDITIONAL SURGERIES:LEEP procedure.Right pinky toe reconstruction.Ureteral Stent (X2). --13:03/19/21 Duyen Thompson R.N.HistoryPAST MEDICAL HX: Immunizations: up-to-date and (Pt has had COVID-19 vaccine). Last normalmenstrual period- Pt takes bc to regulate period; pt states "i haven't had a period in two months".SOCIAL HX: Current every day smoker (Pt vapes). Occasional alcohol use. No drug use. She wasoffered HIV testing but declined. Patient education was provided. She was offered hepatitis C testing butdeclined. Patient education was provided. ( Covid screen negative). She has not traveled outside the.[place].Infectious disease exposure: No infectious disease exposure. The patient was not exposed to Coronavirus.Mask placed on patient. Patient is not a known carrier of tuberculosis, hepatitis, HIV, MRSA or VRE.Patient is not a known carrier of CRE.SELF HARM ASSESSMENT: Self harm assessment was performed. The patient answered "no" to thequestion(s) "Do you have thoughts of harming or killing yourself?" and "Do you have a plan for harming orkilling yourself?".ABUSE ASSESSMENT: Abuse assessment. The patient had positive responses to the question(s) "Do youfeel safe in your home?". Abuse denied. No suspicion of abuse. No report of abuse.NUTRITIONAL RISK ASSESSMENT: The nutritional risk assessment revealed no deficiencies.FUNCTIONAL ASSESSMENT: Functional assessment: no impairments noted.LEARNING NEEDS ASSESSMENT: The learning needs assessment revealed no barriers.FALL RISK ASSESSMENT: Fall risk assessment completed. No risk factors identified.SKIN INTEGRITY ASSESSMENT: Skin integrity risk assessment completed. No skin integrity riskidentified. --13:28 03/19/21 Duyen Thompson R.N.InterventionsIdentification band on patient. --13:28 03/19/21 Duyen Thompson R.N.To treatment room. --15:22 03/19/21 Duyen Thompson R.N. 3 Clinical Report - Nurses [facility] Emergency Department [address] [place] [address] Phone #: ext- [phone] 03/19/2021 13:17 Patient: DANIEL GALEAS Sex: F : 1990 Age: 30yPHYSICAL FUJORLIBFN40:30 03/19/21. Ambulatory to room.GENERAL / NEURO / PSYCH: Alert. Appears in no acute distress.HEENT: No facial asymmetry noted. Pupils equal, round and reactive to light. Conjunctival findingspresent: redness of the right conjunctiva. EOM intact.RESPIRATORY: Respirations not labored.SKIN: Skin is warm and dry. Normal skin turgor. --17:01 03/19/21 Maday Mcnally RN.NURSING PROGRESS NOTESReassessment acuity: LEVEL 4. Rounding: Pain: assessed pain level. Set expectations: advised patient of rounding protocol timing and asked if they needed anything else at this time. The patient reports no complaints and she is calm and resting quietly. Overall patient status is the same- she states feels the same. --14:30 03/19/21 Duyen Thompson R.N. 15:27 03/19/21. BP: 124/84. MAP: 97. HR: 83. RR: 16. O2 saturation: 99%. --15:28 03/19/21 [facility]1 16:42 03/19/21. BP: 132/88. HR: 76. RR: 16. O2 saturation: 97%. --16:42 03/19/21 [facility] CenterK[facility] Tech1 16:30 03/19/21. Two patient identifiers checked. Call light placed in reach. Side rails up x 1. Bed placed in lowest position. Brakes of bed on. Patient ready for evaluation- PA notified. --17:24 03/19/21 Maday Mcnally RN 17:00 03/19/21. The patient reports no complaints and she is calm and resting quietly. --17:25 03/19/21 Maday Mcnally RN 18:04 03/19/2021 Erythromycin Eye Ointment Ointment 1 application given. Applied to the affected area. Allergies verified and confirmed 5 rights. Information reviewed with patient including reason for taking this medication, signs of allergic reaction and precautions. Verbalizes understanding. --18:04 03/19/21 Maday Mcnally RN.DISPOSITION / DISCHARGE 18:18 03/19/21. BP: 124/82. MAP: 96. HR: 65. RR: 16. O2 saturation: 100%. Temp: 98.9 F. Pain level now: 4/10. --18:19 03/19/21 [facility]1 18:32 03/19/21. Condition at departure: improved and stable. No learning barriers present. Discharge instructions provided and reviewed with the patient. Reviewed medication(s) (Cipro eye drops). Patient verbalized understanding. Written instructions provided in Polish. The patient was discharged home and accompanied by family. She left ambulatory and via private vehicle. Family member driving. --18:40 03/19/21 Maday Mcnally RN. 4 Clinical Report - Nurses [facility] Emergency Department [address] [place] [address] Phone #: ext- [phone] 03/19/2021 13:17 Patient: DANIEL GALEAS Sex: F : 1990 Age: 30yLocked/Released at 03/19/2021 18:41 by Maday Mcnally RN Name Value Range Interpretation Code Description Data Lizbeth rce(s) Supporting Document(s) ID Date Data Source [id number] 03/19/2021 01:17:00 PM EDT [facility] 1 Clinical Report - Physicians/Mid Levels [facility] Emergency Department [address] [place] [address] Phone #: ext- [phone] 03/19/2021 13:17 Patient: DANIEL GALEAS Sex: F : 1990 Age: 30y Time Seen: 15:49 03/19/2021; initial patient contact, initial documentation. Arrived- By private vehicle. Historian- patient. Disposition decision: 18:10 03/19/2021.HISTORY OF PRESENT ILLNESS Chief Complaint: EYE PAIN. This started about 2 days ago, involves the right eye and is characterized as mild. The patient did not sustain an injury. Eye pain, redness and irritation. Additional history - ( Pt states she has been having right eye pain since , but now feels that it is radiating. Sts she had a corneal abrasion to the same eye in 2019 treated and. Pt states today conjunctiva is red. She has had eye discomfort and photophobia. She has had watery discharge from the right eye. No blurred vision.).REVIEW OF SYSTEMSNo fever, sore throat or cough. All other systems reviewed and are negative.PAST HISTORYSee nurses notes. Prior eye injury. She does not wear contact lenses. No history of heart disease,diabetes mellitus, glaucoma, lung disease or renal disease. No history of GI disease or other disease. Problems: Vesicoureteric reflux. Additional Surgeries: LEEP procedure. Right pinky toe reconstruction. Ureteral Stent. (X2). Medications: Myrbetriq Oral (Tablet Extended Release 24 Hour 50 mg) 1 tablet, daily. Magnesium Oral 1000 mg, daily. Cod Liver Oil Oral, daily. Cranberry Oral, daily. Control Pills 1 pill, daily. Allergies: No Known Drug Allergy.SOCIAL HISTORYSmoker- current status unknown (Vapes). Occasional alcohol use. No drug use.ADDITIONAL NOTESThe nursing notes have been reviewed. 2 Clinical Report - Physicians/Mid Levels [facility] Emergency Department [address] [place] [address] Phone #: ext- [phone] 03/19/2021 13:17 Patient: DANIEL GALEAS Sex: F : 1990 Age: 30yPHYSICAL EXAMVital Signs: 03/19/2021 13:18 BP: 133/82. MAP: 99. HR: 84. RR: 18. O2 saturation: 100% on room air.Temp: 98.7 F. Have been reviewed. Oxygen saturation normal.Appearance: Alert. Oriented X3. No acute distress.Rt Eye: Injected conjunctiva. Corneal abrasion present. No corneal foreign body.Eyes: Visual acuity noted- see nurse's notes. Right cornea examined with fluorescein stain. Eyelidsappear normal to inspection. Pupils equal, round and reactive to light. Accommodation normal. EOMsintact. Periorbital areas appear normal to inspection. Anterior chambers clear. Visual acuity performedwithout corrective lenses: left eye 20/30 minus one letter; right eye 20/30 minus two letters; both eyes20/30.ENT: Normal ENT inspection. Airway intact. TM's normal. Ears normal. Nose normal. Nares normal.Pharynx normal. Moist mucous membranes. Uvula midline. Voice normal.Ear (left): There is dullness of the tympanic membrane and abnormal insufflation. No tenderness of theauricle, pain with movement of the auricle, lymphadenopathy, erythema of the external canal or swelling ofthe external canal. No material in the external canal. Left ear normal. Normal mastoid. No hearingdeficit.Ear (right): There is dullness of the tympanic membrane and abnormal insufflation. No tenderness of theauricle, pain with movement of the auricle, lymphadenopathy, erythema of the external canal or swelling ofthe external canal. No material in the external canal. Right ear normal. Normal mastoid. No hearingdeficit.Neck: Neck supple. Normal inspection.CVS: Normal heart rate and rhythm. No JVD present. Pulses normal. Capillary refill normal. Strongperipheral pulses. Heart sounds normal. Pulses: right radial 2+; left radial 2+.Respiratory: Chest normal on inspection. No respiratory distress. Unla bored respirations. Lungs clear.Good chest movement. Breath sounds normal and equal.Neuro: Awake. Alert. Mood/affect normal. Speech normal. No motor deficit. No sensory deficit.Psych: Cognition normal. Thought process and content normal. Insight and judgement normal.PROGRESS AND PROCEDURESCourse of Care: VSS, NAD, AOx3, interacting well and appropriately, no use of accessory muscle, able tospeak full sentences, stable, non-toxic looking. Enter room and pt lying peacefully in bed in NAD. Patient stable. Denies any new issues, concerns, or complaints. Pt deneis any trauma. Sts that seh rubbed her eye and progressviely gottne worse over the last few days. PE demos NV intact b/l UE. EOMI, PERRLA, and no pain wiht movement. ? abrasion ntoed on akua lateral aspect of the R eye. Stained eye and noted no FB and noted abrasion to hte lateral aspect. Will tx. Pt is in full agreement. Discussed results with pt. Discussed tx plan with pt. Discussed and counseled on stable condition. Discussed importance of a f/u with PCP. Discussed return to ER criteria. Answered their questions. 3 Clinical Report - Physicians/Mid Levels [facility] Emergency Department [address] [place] [address] Phone #: [phone] ext- [phone] 03/19/2021 13:17 Patient: DANIEL GALEAS Sex: F : 1990 Age: 30y Indicates and verbalizes that they understand, agree, and will comply with above. Denies any new questions or concerns. Patient has capacity to understand. Discharge decision based on the following: patient's condition is stable; patient's exam is stable; social support is adequate; transportation is available; follow-up is available. Discussed of OTC Motrin and Tylenol to control inflammation and pain management. Informed to follow directions on bottle that are appropriate for age and/or weight. Disposition: Discharged home in good and improved condition. Condition: good and stable.CLINICAL IMPRESSION Medium corneal abrasion to the right eye. No foreign body or rust ring.INSTRUCTIONS No dietary restrictions. Do not smoke. (Recommend to utilize OTC Motrin and Tylenol to control inflammation and pain management. Recommend to follow the instructions on the bottle and not to exceed Please see eye doctor on post for eval.). Warnings: GENERAL WARNINGS: Return or contact yo ur physician immediately if your condition worsens or changes unexpectedly, if not improving as expected, or if other problems arise. Prescription Medications: ciprofloxacin 0.3 % eye drops Instill 1 drop every four hours for 5 days -- Dispense 1 each. Refills: 0. Substitution permitted. Note to Pharmacy - USE Rx DISCOUNT CARD: $16.6, BIN:[id number], PCN:YIN, Group:EMR, ID:[id number]. Pharmacy - [facility] [address] ; [place] [address]. . Follow-up: Return to the emergency department as needed. Follow up with your healthcare provider in about two days if not better. Call for an appointment. Understanding of the discharge instructions verbalized by patient. Follow-up with: [facility], , , [address], , [place], [address] Follow up. Reason for referral: evaluation and treatment. 4 Clinical Report - Physicians/Mid Levels [facility] Emergency Department [address] [place] [address] Phone #: ext- [phone] 03/19/2021 13:17 Patient: DANIEL GALEAS Sex: F : 1990 Age: 30y(Electronically signed by Cong Jesus P.A.-C 03/20/2021 01:13) Name Value Range Interpretation Code Description Data Lizbeth rce(s) Supporting Document(s) ID Date Data Source [id number] 02/20/2021 11:57:43 AM EDT [facility] Name Value Range Interpretation Code Description Data [facility](s) Supporting Document(s) History and Physical [facility] [id number] [facility] [file] AgICAgICAgICAgICAgICAgICAgICAgICAgICAgICAgICAgICAgICAgICAgICAgICAgICAgICAgICAgIC AgICAgICAgICAgICAgICAgICAgICAgICAgICAgICAgICAgDQogICAgICAgICAgICAgICAgICAgICAgIC AgICAgICAgICAgICAgICAgICAgICAgICAgICAgICAg ICAgICAgICAgICAgICAgICAgICAgICAgICAgICAgICAgICAgICAgICAgICAgDQogICAgICAgICAgICAg ICAgICAgICAgICAgICAgICAgICAgICAgICAgICAgICAgICAgICAgICAgICAgICAgICAgICAgICAgICAg ICAgICAgICAgICAgICAgICAgICAgICAgICAgDQogIC AgICAgICAgICAgICAgICAgICAgICAgICAgICAgICAgICAgICAgICAgICAgICAgICAgICAgICAgICAgIC AgICAgICAgICAgICAgICAgICAgICAgICAgICAgICAgICAgICAgDQogICAgICAgICAgICAgICAgICAgIC AgICAgICAgICAgICAgICAgICAgICAgICAgICAgICAg ICAgICAgICAgICAgICAgICAgICAgICAgICAgICAgICAgICAgICAgICAgICAgICAgDQogICAgICAgICAg ICAgICAgICAgICAgICAgICAgICAgICAgICAgICAgICAgICAgICAgICAgICAgICAgICAgICAgICAgICAg ICAgICAgICAgICAgICAgICAgICAgICAgICAgICAgDQ ogICAgICAgICAgICAgICAgICAgICAgICAgICAgICAgICAgICAgICAgICAgICAgICAgICAgICAgICAgIC AgICAgICAgICAgICAgICAgICAgICAgICAgICAgICAgICAgICAgICAgDQogICAgICAgICAgICAgICAgIC AgICAgICAgICAgICAgICAgICAgICAgICAgICAgICAg ICAgICAgICAgICAgICAgICAgICAgICAgICAgICAgICAgICAgICAgICAgICAgICAgICAgDQogICAgICAg ICAgICAgICAgICAgICAgICAgICAgICAgICAgICAgICAgICAgICAgICAgICAgICAgICAgICAgICAgICAg ICAgICAgICAgICAgICAgICAgICAgICAgICAgICAgIC AgDQogICAgICAgICAgICAgICAgICAgICAgICAgICAgICAgICAgICAgICAgICAgICAgICAgICAgICAgIC VnFLHnDSRlDFBkJWPoNHPuTOYtKGTsQGLhZETiINYxUCHiXUXjWQLnPOUjCWp8L8wqWRAdBYDtKA9oLC d3Jz8+AOpYTdUfIWK7cnEyyF9EJZ4ki2HyELawGWQt e3LaWMb8BJ3UWUFgLPasGZ6RJEbwpk7KLSAoEHUkdOESg1zvLwGzKMS4HVFjWrdoNM7ULCNzB0pxdfJm LQLhINWPOKvnCTQQBXlxTRPKWN1DUoEpY3XviW81LHPQVr4+ELpdmnYcTvmWXrQ9TFZpy8AdTIk4YC7Z JZOgDmbsd8SmFbrsMDZYTUuhYG7WXRA9OLB3QTRzOj 3WOSIcT087ooAwXU0FVn1SEjPjLF7zhw9RJpuqPGTsPcwDDvf9SBywFJ2NpTZrWAcUCxLxSrwrNCZtqR cyHHXxDQoyYMJgHN1IZRA6VPUqZtszEqKxIQBfOHvjHQSHGGrJFjUdW4Ist8PwEwG0KONiLnUhTKeeVC KcFsG6MX73sNdwSR8MOMYoDXJiPZ94VVK0VCUnDl4J Fc7UCaUuQZ0qkm7ZHjuaXLJhVhiUBwq8FTwhOH0NvPGpC1XxwFHre7oHVqDfH3MUGFE2LUJiOd4QHWVz LiWzOTFgDJiwBQ5nNDKkJPCFpAkpdoN7CD5QZK2stoBcIZ3UFcSxWy3wRf6NBiUdR2PnD1UdGOFsTVBA GEzzBI0IGBxcZJ2zRN1Pt2WFrMOwgN6ici3VQOHcTH SsRrcxya8YEmvhD3X5mCxvKZEnEidwZPERNPacTC6YSBGoXML7KXKoCgEgZGCKMnYkC91eDR7BH2Tzn7 6bPdK9PJUhAvKqTHbvOG39rLexzkYgoZFztWzcZM9EVt8+DQplbmRvYmoNCnhyZWYNCjAgNDANCjAwMD DvWPBxTMZfRzM1YsDbIc3KHUKjPPPoYPTzOxHdDCUm TDAqONbuOYLnKUB5TXj5SLCrEXUgNF2VJnViCTBgHvm2DqGjVQNmCOHycq4OSNAbIGQpJGQ0BrUcZJVm XGYlIJkqBIPdEASaDzz4SXRyITOnGD2DExZuZQRuHRN5TMNvZHNjVSTcnj3HPQHiHTEyRpHjTvLlJKEm QFXfDNjtRAHtKDE1XYV9MDIkYNSjIT7SAmGqORKzCE BmEabqWPHiOQWicz0JLLNjKISnMRTyTaCmBIUhUNBhDCytXTCtDMAsMxdzEFUxWHOmSH1NKpAmTYDpTJ N9INimGCHrCPVusb3PKKAcYCVnAlU8MiVxRDVsUFHhWOfnMYIwNCZzMqXwIHDgENQoOG2RMvRmPQWwKA L0ScRjWKXdXNTwcy1ZXBTwIYWeFHFgAKFaNSFjMOKd XQliCVJsLHB0EMJyMNFqFCEyLV4XRhKfVGVvEdY7IxGuZEZnPYYnmx5CBZZjJFLjBCp1GMUiEBCmIQZy ZUduFWDsUZY8WnH9RRRwVSZyHZ0TReLuYMIrYaEcFMOuTFMiVUDoza0KIYJmSLRePcQnJIHdVSQnYRUc OMwgDNUhYIR7SDRtZEAdGCUyCY1VZcZaKFCgVzs0AG QeNYTwVPYgrq3PZZDpDWEuIKZgMOBdYPFuWXOvUOnaWUYxKKL6TAG8NLQqVPUqBL3JTnOnEOZxOim9VZ FiOQPrODGhqf6TRUVlBKTmYTf2JHWyGNHrEGYrLQxzXTQhAMPwUTJyCAJtZIGdYF5WHdUcJVDjJgXtCB HqIXEzPKKcmr4MRSQpBLDmRPT5FVNcHTDuNTYuBSvd GDSwHAC2CDY0ODMkUXTwXR2FMsRvIJUtQxU7HwknLBScWEQtgl0ZKRCsLMNiAQiyEYPeVTHaACTrBBzl GNKtLTC7VWI0MYIxAGCbYB8AXxMyWAWuDcQ0AeQlZWCmHYBxdf2UPCKkQGHgBpf7XMKpUIBnXQWzSCpa MDMvITH9MYZvMMHjYWGpYN7IJwDhAUUlRyvmZYKaFD ZcXVKjjc9AdKCrqLxeiv6FMGkGPp0OuQlwGIZpRReaFp7lfQTrTBYiCZUUQn7RyyRmBHQsWOOCSDgyVV NmKJKfPhDzHBY4Rlv5OGTiZkK8SxNkFHz7IfR6SpP2NxN7VcW9QjV2SNC6WcWfMAx1J5Q6NgArPEZcPK lmYjdiNjkyZDg+RT5iLKv+Ua4Qm7MhorO4jtZhWGsbILZjAB7JBSXVG7ICJk== ID Date Data Source [id number] 12/07/2020 10:28:00 AM EDT [facility] Patient: MURALI MACEDO Obs ervation Report - Physicians/Mid Levels [facility].VisitID: [id number] [place] [address] [phone], FRegistramidd[place] emergency department Date/Time: 12/02/2020 21:13 Weight:72.1 kg (S). Height/Length:61 inches (S). BMI:30 PAST HISTORYProblems:Recurring uti. Additional Surgeries:Leet procedure. Medications:None. Allergies:No Known Drug Allergy. FAMILY HISTORYNo significant family medical history. INSTRUCTIONSYour Current Medications: .No home medication. (Electronically signed by Ayla Herrera P.A. 12/03/2020 05:03) Addenda for MURALI MACEDO VisitID: [id number] Date: 12/02/2020 12/07/2020 10:26Prescription called in to pharmacy. Patient returned a call to the ED. A prescriptionfor Mbihtbdr604 mg by mouth twice daily was called in to [facility] in [place].(Electronically signed by Chelsy Crespo R.N. - 12/07/2020 10:26) Name Value Range Interpretation Code Description Data Lizbeth rce(s) Supporting Document(s) ID Date Data Source [id number] 12/05/2020 03:08:00 AM EDT [facility] Name Value Range Interpretation Code Description Data Lizbeth rce(s) Supporting Document(s) SARS coronavirus 2 RNA [Presence] in Res piratory specimen by [facility] with probe detection NEGATIVE [facility] This lab was ordered by [facility] a nd reported by [facility]. ID Date Data Source [id number] 12/03/2020 05:32:00 AM EDT [facility] Patient: MURALI MACEDO Obs ervation Report - Physicians/Mid Levels [facility].VisitID: [id number] [place] [address] [phone], FRegistration Date/Time: 12/02/2020 21:13 Weight:72.1 kg (S). Height/Length:61 inches (S). BMI:30 PAST HISTORYProblems:Recurring uti. Additional Surgeries:Leet procedure. Medications:None. Allergies:No Known Drug Allergy. FAMILY HISTORYNo significant family medical history. INSTRUCTIONSYour Current Medications: .No home medication. (Electronically signed by Ayla Herrera, PElvieAElvie 12/03/2020 05:03) Name Value Range Interpretation Code Description Data Lizbeth rce(s) Supporting Document(s) ID Date Data Source [id number] 12/06/2020 02:03:00 PM EDT [facility] Name Value Range Interpretation Code Description Data Lizbeth rce(s) Supporting Document(s) ORGANISM [facility] COLONY COUNT N [facility] ID Date Data Source [id number] 12/02/2020 10:29:00 PM EDT [facility] TSYSORDER [id number] Name Value Range Interpretation Code Description Data Lizbeth rce(s) Supporting Document(s) URINE RBC 15-20 /hpf 0-3 [facility] URINE WBC 5-10 /hpf 0-[address] [facility] URINE EPITHELIAL CELLS 1+ /hpf 0 [facility] URINE BACTERIA 3+ NONE SEEN [facility] ID Date Data Source [id number] 12/02/2020 10:24:00 PM EDT [facility] TSYSORDER [id number] Name Value Range Interpretation Code Description Data Lizbeth rce(s) Supporting Document(s) URINE COLOR. YELLOW [facility] URINE APPEARANCE SLIGHTY CLOUDY [facility] URINE GLUCOSE (UA) NEGATIVE mg/dL NEGATIVE [facility] URINE BILIRUBIN NEGATIVE NEGATIVE [facility] URINE KETONE 5(TRACE) mg/dL NEGATIVE [facility] SPECIFIC GRAVITY,URINE 1.020 1.005-1.030 [facility] URINE BLOOD 2+(MODERATE) NEGATIVE [facility] PH,URINE 7.0 5.0-9.0 [facility] URINE PROTEIN 2+(100) mg/dL NEGATIVE [facility] URINE UROBILINOGEN NORMAL(0.2-1) mg/dL 0-1 [facility] URINE NITRATE NEGATIVE NEGATIVE [facility] URINE LEUKOCYTE ESTERASE 1+(SMALL) NEGATIVE [facility] ID Date Data Source [id number] 12/02/2020 09:42:00 PM [id number] Name Value Range Interpretation Code Description Data Lizbeth rce(s) Supporting Document(s) HCG URINE NEGATIVE NEGATIVE [facility] ID Date Data Source [id number] 05/18/2020 02:25:00 PM EST [facility] ([facility]) Name Value Range Interpretation Code Description Data Lizbeth rce(s) Supporting Document(s) Color of Urine Laboratory test result [facility] ([facility]) pH of Urine by Test strip 6 [facility] NT ([facility]) Spec [place] 1.020 [facility] ([facility]) Appearance of Urine Laboratory test result [facility] ([facility]) Protein [Presence] in Urine by Test strip Laboratory test result [facility] ([facility]) Leukocytes Laboratory test result [facility] ([facility]) Nitrate [Presence] in Urine Laboratory test result [facility] ([facility]) Inhouse Glucose Laboratory test result [facility] ([facility]) Ketones [Presence] in Urine by Test strip Laboratory test result [facility] ([facility]) Urobilinogen Laboratory test result [facility] ([facility]) Bilirubin.total [Presence] in Urine by Test strip Laboratory test res ult [facility] ([facility]) Blood type and Indirect antibody screen panel - Blood Laboratory test result [facility] ([facility]) ID Date Data Source [id number] 05/03/2020 09:53:00 AM EST [facility] [address] [place] [address] PHONE: [phone] FAX: [phone] Name .................. : JUAN A Alfaro Acct Number.................. : [id number] ROOM. ................. : Number ................... : [id number] Stay type ............. : O/P Discharge Date......... ... : 04/29/20 Admit Date ......... : 04/29/20 Admit Phys .................... : JOS ARANA Date of ....... : 1990 Family Phys ................... : UNKNOWN CO Phone .................. : [phone] Age ................................ : 29 Film# .................. .:[id number] Sex ................................. : F Unsigned transcriptions are preliminary reports and do not represent a medical or legal document CT ABD & PELV W/O F[place] W/[place] [id number] COMPLETE:04/29/20 12:43 KJE 392 (REASON FOR ABDOMEN: EVAL URINARY TRACT,K IDNEYS,BLADDER,URETERS CT OF THE ABDOMEN AND PELVIS WITH AND WITHOUT CONTRAST: CLINICAL HISTORY: Evaluate urinary tract, kidneys, bladder and ureters. COMPARISON: None. FINDINGS: Lung bases: Clear. Liver: Normal contour. Benign right hepatic cyst. Patent portal veins. Biliary system: Normal gallbladder. No biliary dilatation or calcified stone. Urinary bladder: Normal. Spleen: Normal. Kidneys: Symmetric enhancement with normal contour. Areas of renal cortical thinning are noted in the left upper pole where there are also nonobstructing calculi. Superior pole of the left kidney has a dysp lastic appearance related to old scarring. No hydronephrosis. Urinary bladder: Unremarkable. Pelvic organs: Normal. Bowel: Normal caliber. No obstruction, wall thickening or edema. Peritoneum: No free air or ascites. Lung mathur: No adenopathy. Page 1 of 2 [place] [address] PHONE: [phone] FAX: [phone] Name .................. : JUAN A Alfaro Acct Number.................. : [id number] ROOM. ................. : Number ................... : [id number] Stay type ............. : O/P Discharge Date......... ... : 04/29/20 Admit Date ......... : 04/29/20 Admit Phys .................... : JOS ARANA Date of ....... : 1990 Family Phys ................... : UNKNOWN CO Phone .................. : [phone] Age .... ............................ : 29 Film# .................. .:[id number] Sex ................................. : F Unsigned transcriptions are preliminary reports and do not represent a medical or legal document CT ABD & PELV W/O FOL W/[place] [id number] COMPLETE:04/29/20 12:43 KJE 392 (REASON FOR ABDOMEN: EVAL URINARY TRACT,KIDNEYS,BLADDER,URETERS Vessels: Normal inferi or vena cava and abdominal aorta. Bones: No acute or suspicious osseous lesion. IMPRESSION: Left nephrolithiasis, upper pole scarring of the left kidney without current hydronephrosis. While performing the above CT examination, radiation dose reduction was accomplished utilizing automated exposure control, adjusting of the mA and kV based on the patient's body size and/or the use of imperative reconstructive techniques. CT dose: 1227.6 mGycm Contrast agent in mL: 75 Isovue 370 Method of administration: Intravenous Electronically Reviewed and Signed By Jamal Hardwick MD , 05/03/20 09:53, APM Transcribe Initials: DZ , Transcribe Date: 04/29/20 16:25, Dictation Date: Copy for: JOS ESPINO via fax Copy for: 710 MED REC Page 2 of 2 Name Value Range Interpretation Code Description Data Lizbeth rce(s) Supporting Document(s) ID Date Data Source [id number] 04/14/2020 03:56:00 PM EST [facility] ([facility]) Name Value Range Interpretation Code Description Data Lizbeth rce(s) Supporting Document(s) CT Abd &Pelv W/O Fol W/IV cont Laboratory test result [facility] ([facility]) ID Date Data Source [id number] 04/20/2020 07:33:00 AM [facility] Name Value Range Interpretation Code Description Data Lizbeth rce(s) Supporting Document(s) CULTURE URINE [facility] _CULTURE URINE_$$[id number]$$[id number]$$[id number]$$950564$$334376$$160019$$320810$$128701$$134713$$ 702258$$107883$$716400$$868996$$039585$$993296$$680029$$413882$$830679$$353515$$ 828044$$579852$$395694$$084792$$316602$$655631$$311597$$653264 -- Continued on next page --Patient: JUAN A Alfaro Order: Page 2Culture: CULTURE URINE Status: Final ==== -- Continued on next page --Patient: JUAN A Alfaro Order: Page 2Culture: CULTURE URINE Status: Prelim =====$$[id number]$$[id number] DATE/TIME: 04/19/2020 16:06Culture: CULTURE URINE Status: FinalIsolate 1 Escherichia coli Flag: A . . . . . . .1Greater than 100,000 colony forming units per mLCefazolin <=4 ug/mLCefazolin with an EDEL <=16 predicts susceptibility to the oral agentscefaclor, cefdinir, cefpodoxime, cefprozil, cefuroxime, cephalexin,and loracarbef when used for therapy of uncomplicated urinary tractinfections due to E. coli, Klebsiella pneumoniae, and Proteusmirabilis. Previous result entered on 04/18/2020 06:45 ET Escherichia coliUrine Culture,Comprehensive: [id number] coli Flag: APatient: JUAN A Alfaro Order: [id number] Page 3Culture: CULTURE URINE Status: Final ISOLATE 1 Escherichia coli Isolate 1Antibiotic EDEL IntUnits ug/mL ----Amoxicillin/Clavulanic Acid S S . . . . . .20-8Ampicillin S S . . . . . .28-1Cefepime S S . . . . . .6644-9Ceftriaxone S S . . . . . .141-2Cefuroxime S S . . . . . .145- 3Ciprofloxacin S S . . . . . .185-9Ertapenem S S . . . . . .31649-4Zevcsjmfwa S S . . . . . .267-5Imipenem S S . . . . . .279-0Levofloxacin S S . . . . . .15495-0Cmobzxadp S S . . . . . .6652-2Nitrofurantoin S S . . . . . .363-2Piperacillin/Tazobactam S S . . . . . .412-7Tetracycline S S . . . . . .496-0Tobramycin S S . . . . . .508-2Trimethoprim/Sulfa R R . . . . . .516-5P1 Test performed by: Angelina GALLOWAY #: [id number] [address] [place] [address] [place] [id number] [facility] [id number] Director : Breezy Cabezas MD NPI #:[employer] : 04/19/20.08.XMT.SENT REF 04/20/2034.XMT.SENT REF 04/20/2034. .to OBACELIX via fax ID Date Data Source [id number] 04/14/2020 01:46:00 PM EST [facility] ([facility]) Name Value Range Interpretation Code Description Data Lizbeth rce(s) Supporting Document(s) Color of Urine Laboratory test result [facility] ([facility]) Appearance of Urine Laboratory test result [facility] ([facility]) Spec [place] 1.015 [facility] ([facility]) pH of Urine by Test strip 7 [facility] NT ([facility]) Nitrate [Presence] in Urine Laboratory test result [facility] ([facility]) Leukocytes Laboratory test result [facility] ([facility]) Protein [Presence] in Urine by Test strip Laboratory test result [facility] ([facility]) Urobilinogen Laboratory test result [facility] ([facility]) Ketones [Presence] in Urine by Test strip Laboratory test result [facility] ([facility]) Inhouse Glucose Laboratory test result [facility] ([facility]) Blood type and Indirect antibody screen panel - Blood Laboratory test result [facility] ([facility]) Bilirubin.total [Presence] in Urine by Test strip Laboratory test res ult [facility] ([facility]) Procedure Social History Code Duration Value Status Description Data Source(s ) Smoking 03/15/2021 12:00:00 AM EDT UNK completed eCW1 ([facility]) Smoking 02/03/2021 12:00:00 AM EDT UNK completed eCW1 ([facility]) Smoking 02/03/2021 12:00:00 AM EDT UNK completed eCW1 ([facility]) Smoking 01/04/2021 12:00:00 AM EDT UNK completed eCW1 ([facility]) Smoking 01/04/2021 12:00:00 AM EDT UNK completed eCW1 ([facility]) Smoking 12/20/2020 12:00:00 AM EDT UNK completed eCW1 ([facility]) Smoking 12/20/2020 12:00:00 AM EDT UNK completed eCW1 ([facility]) Vital Signs ID Date Data Source UNK Name Value Range Interpretation Code Description Data Source(s) Body temperature 97.4 [degF] 97.4 [degF] eCW1 ( [facility]) Body weight 164 [lb_av] 164 [lb_av] eCW1 ([facility]) Body weight 74.39 kg 74.39 kg eCW1 ([facility]) Systolic blood pressure 130 mm[Hg] 130 mm[Hg] e CW1 ([facility]) Diastolic blood pressure 74 mm[Hg] 74 mm[Hg] eCW1 ([facility]) Body height 61 [in_i] 61 [in_i] eCW1 ([facility]) Body mass index (BMI) [Ratio] 30.98 kg/m2 30.98 kg/m2 W1 ([facility]) Heart rate 92 /min 92 /min eCW1 ([facility]) Respiratory rate 18 /min 18 /min eCW1 ([facility]) Body temperature 97.4 [degF] 97.4 [degF] eCW1 ( [facility]) Body weight 161 [lb_av] 161 [lb_av] eCW1 ([facility]) Body height 61 [in_i] 61 [in_i] eCW1 ([facility]) Body mass index (BMI) [Ratio] 30.42 kg/m2 30.42 kg/m2 eCW1 ([facility]) Heart rate 99 /min 99 /min eCW1 ([facility]) Respiratory rate 18 /min 18 /min eCW1 ([facility]) Systolic blood pressure 128 mm[Hg] 128 mm[Hg] e CW1 ([facility]) Diastolic blood pressure 66 mm[Hg] 66 mm[Hg] eCW1 ([facility]) Heart rate 88 /min 88 /min eCW1 ([facility]) Respiratory rate 18 /min 18 /min eCW1 ([facility]) Body temperature 98 [degF] 98 [degF] eCW1 ([facility]) Systolic blood pressure 130 mm[Hg] 130 mm[Hg] e CW1 ([facility]) Diastolic blood pressure 68 mm[Hg] 68 mm[Hg] eCW1 ([facility]) Body weight 162 [lb_av] 162 [lb_av] eCW1 ([facility]) Body height 61 [in_i] 61 [in_i] eCW1 ([facility]) Body mass index (BMI) [Ratio] 30.61 kg/m2 30.61 kg/m2 eCW1 ([facility]) Oxygen saturation in Arterial blood by Pulse oximetry 96 % 96 % [facility] ([facility]) Respiratory rate 20 /min 20 /min [facility] ( [facility]) Body temperature 97.5 [degF] 97.5 [degF] [facility] ([facility]) Heart rate 86 /min 86 /min [facility] ([facility]) Diastolic blood pressure 82 mm[Hg] 82 mm[Hg] [facility] ([facility]) Systolic blood pressure 126 mm[Hg] 126 mm[Hg] M EDENT ([facility]) Systolic blood pressure 127 mm[Hg] 127 mm[Hg] M EDENT ([facility]) Oxygen saturation in Arterial blood by Pulse oximetry 98 % 98 % [facility] ([facility]) Respiratory rate 20 /min 20 /min [facility] ( [facility]) Heart rate 60 /min 60 /min [facility] ([facility]) Diastolic blood pressure 94 mm[Hg] 94 mm[Hg] [facility] ([facility]) Patient Treatment Plan of Care Planned Activity Planned Date Details Description Data Source (s) 24 HR mirabegron 25 MG Extended Release Oral Tablet [M yrbetriq] 02/03/2021 12:00:00 AM EDT eCW1 ([facility]) 24 HR mirabegron 25 MG Extended Release Oral Tablet [M betriq] 02/03/2021 12:00:00 AM EDT eCW1 ([facility]) 24 HR mirabegron 50 MG Extended Release Oral Tablet [M betriq] 02/02/2021 12:00:00 AM EDT eCW1 ([facility]) 24 HR mirabegron 50 MG Extended Release Oral Tablet [ betriq] 02/02/2021 12:00:00 AM EDT eCW1 ([facility]) Phenazopyridine hydrochloride 100 MG Oral Tablet [Pyri dium] 12/20/2020 12:00:00 AM EDT eCW1 ([facility]) 24 HR Oxybutynin chloride 5 MG Extended Release Oral T ablet 12/20/2020 12:00:00 AM EDT eCW1 ([facility]) Phenazopyridine hydrochloride 100 MG Oral Tablet [Pyri dium] 12/20/2020 12:00:00 AM EDT eCW1 ([facility]) 24 HR Oxybutynin chloride 5 MG Extended Release Oral T ablet 12/20/2020 12:00:00 AM EDT eCW1 ([facility])
[2021-04-18] MEDS ORDERED: LIDOCAINE 2% 5ML JELLY UROJET As Ordered ONE (11:03)
[2021-04-18] MEDS ORDERED: ACETAMINOPHEN 1000MG 100ML IV BTL (OFIRMEV) (J0131 PER 10MG) As Ordered ONE (11:34)
[2021-04-18] MEDS ORDERED: METOCLOPRAMIDE INJ 10MG/2ML VIAL (J2765 PER 1) As Ordered ONE (11:35)
[2021-04-18] MEDS ORDERED: ONDANSETRON 4MG/2ML VIAL As Ordered ONE (11:35)
[2021-04-18] MEDS ORDERED: dexameTHASONE 4 MG/ML 1ML VIAL (J1100 PER 1MG) As Ordered ONE (11:35)
[2021-04-18] MEDS ORDERED: propofoL 200 MG/20 ML VIAL As Ordered ONE (11:35)
[2021-04-18] MEDS ORDERED: MIDAZOLAM INJ 2MG/2ML VIAL (J2250 PER 1MG) As Ordered ONE (11:35)
[2021-04-18] MEDS ORDERED: LIDOCAINE 2% 100MG/5ML SDV (FOR ANES.) As Ordered ONE (11:35)
[2021-04-18] MEDS ORDERED: fentaNYL 100 MCG/2 ML INJECTION (J3010) As Ordered ONE (11:35)
[2021-04-18 12:20] VITALS: BP 121/70
--- NOTE | 2021-04-18 15:22 | RO ---
OPERATIVE NOTE DATE OF OPERATION: 04/18/2021 PREOPERATIVE DIAGNOSIS: Left vesicoureteral reflux. POSTOPERATIVE DIAGNOSIS: Left vesicoureteral reflux. PROCEDURE: Cystoscopy, Deflux injection into left ureteral orifice. SURGEON: Skyler Reza MD CALL CENTER RECRUITER: None. ANESTHESIA: MAC. OPERATIVE INDICATIONS: This is a 30-year-old female with completely deflated left collecting system. Her upper pole moiety was found to have significant vesicoureteral reflux and the patient wished to have treatment for this. It was recommended she be brought to the operating room today for the above mentioned procedure. DESCRIPTION OF PROCEDURE: The patient was brought to the operating room and MAC anesthesia was administered. Prophylactic antibiotics were infused. She was then placed in the dorsal lithotomy position and prepped and draped in the usual sterile fashion. Rigid cystoscope was inserted in the urethral meatus and advanced to the bladder. At this point the bladder was examined and both left ureteral orifices were identified. The more proximal lateral ureteral orifice appeared normal. The more distal and medial ureteral orifice was very patulous and this was the one causing the reflux. At this point 1 mL of Deflux was then injected into the left ureteral orifice at 6 o'clock until an appropriate mound was created. Once the mound was created it did appear to cause adequate coaptation of the ureteral orifice to help prevent reflux. Once done hemostasis appeared to be excellent. The bladder was emptied of all fluids and this marked the conclusion of the procedure. The patient was then taken out of the dorsal lithotomy position, awakened from anesthesia and transferred to the recovery room in stable condition. ESTIMATED BLOOD LOSS: 5 mL. COMPLICATIONS: None. SPECIMEN: None. PLAN: The patient will follow up for postoperative visit. We will likely get a cystogram in a few weeks to check for resolution of reflux.
== END 2021-04-18 12:28 | disposition home or self-care (01) ==
LOC: M SDC 09:33
PROVIDERS: ATTEND Urology
DX: N13.70 Vesicoureteral-reflux, unspecified (principal); R35.0 Frequency of micturition; Q62.5 Duplication of ureter; Q63.0 Accessory kidney; Z87.442 Personal history of urinary calculi; Z87.440 Personal history of urinary (tract) infections; J45.909 Unspecified asthma, uncomplicated; R06.83 Snoring; F17.290 Nicotine dependence, other tobacco product, uncomplicated; Z79.899 Other long term (current) drug therapy
CPT/HCPCS: 52327; J0131; J0690; J1100; J2250; J2405; J2765; J3010; L8604

== ENCOUNTER → 2021-04-29 | Outpatient (CLI) | payer OTHER ==
[~2021-04-29] MED LIST changes: +CYSTO-CONRAY II 17.2% 250ML VIAL (Q9958) As Ordered ONE; -LR 1,000 ML IV ONE; -ceFAZolin SOD 2 GM in IV 1 EA IV ONE
--- NOTE | 2021-04-29 16:55 | REP ---
INDICATION: VESICOURETERAL-REFLUX, UNSPECIFIED. COMPARISON: [facility] study dated 01/24/2021 TECHNIQUE: This procedure was performed by JORGE Cooper, under the direct supervision of . Images were reviewed with Prior to dictation. The bladder was catheterized using aseptic precautions, and standard technique.The patient arrived in the department with an indwelling Hicks catheter. One hundred seventy-five ml of Cysto-Conray II was instilled into the bladder in a retrograde flow. Multiple fluoroscopic radiographs were obtained. FINDINGS: The bladder is normal in position and contour. The bladder became fully distended. During the final portion of bladder distension reflux is visualized extending the length of the ureter and into the left renal collecting system. During voiding even more prominent reflux was visualized extending the length of the ureter and into the left renal collecting system. 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 This appears unchanged from the previous study. There is essentially no postvoid residual. IMPRESSION: Grade 3-4 vesicoureteral reflux that appears unchanged from previous study dated 01/24/2021 as described above. 0.4 minutes of fluoroscopy time was utilized for this procedure. Some fluoroscopic images are performed with last image hold technology. These images require no additional radiation. <Electronically signed by Soumya Mayes > 04/29/21 1651 <Electronically signed by Jeanmarie Francis > 04/29/21 1651
== END ==
LOC: M RADPRO 09:22
PROVIDERS: ATTEND Urology
DX: N13.70 Vesicoureteral-reflux, unspecified (principal)
CPT/HCPCS: 51600; 74455; Q9958